=== PATIENT | male | born 1950 | race Caucasian/White ===

== ENCOUNTER 2018-09-29 11:46 | Inpatient (IN) | payer OTHER, MEDICAID ==
[~2018-09-29] VITALS: Ht 157.5 cm; Wt 50.3 kg
[~2018-09-29 11:46] MED LIST: 0.45% NACL 1,000 ML BAG IV ONE; MIDAZOLAM HCL 5 MG/5 ML VIAL IVP ONE; NS IRRIG SOLN 1000 ML IR ONE; ONDANSETRON HCL 4 MG/2 ML VIAL IVP ONE; PROPOFOL 200MG/ 20ML VIAL (DIPRIVAN) IV ONE; SEVOFLURANE 15 MIN GAS INH ONE
[2018-09-29] MEDS ORDERED: BISA-79 PO (15:44)
[2018-09-29] MEDS ORDERED: BISA10SU61 RC (15:44)
[2018-09-29] MEDS ORDERED: MULT-1089 PO (15:44)
[2018-09-29] MEDS ORDERED: CARV6.2554 PO (15:44)
[2018-09-29] MEDS ORDERED: DIVA250T PO (15:44)
[2018-09-29] MEDS ORDERED: SIMV40TA2 PO (15:44)
[2018-09-29] MEDS ORDERED: MOM PO (15:44)
[2018-09-29] MEDS ORDERED: ASPI-1155 PO (15:44)
[2018-09-29] MEDS ORDERED: DONE10TA44 PO (15:44)
[2018-09-29] MEDS ORDERED: SSNOVOLOG SUBCUT (15:44)
[2018-09-29] MEDS ORDERED: ACET-2165 PO (15:44)
[2018-09-29] MEDS ORDERED: INSU100V11 SQ (15:44)
[2018-09-29] MEDS ORDERED: LINA5TAB2 PO (15:44)
[2018-09-29] MEDS ORDERED: FENO160 PO (15:44)
[2018-09-29] MEDS ORDERED: ASCO500T20 PO (15:44)
[2018-09-29] MEDS ORDERED: FLEETMO RC (15:44)
[2018-09-29] MEDS ORDERED: MELA3TAB PO (15:44)
[2018-09-29] MEDS ORDERED: CLOP300T2 PO (15:44)
[2018-09-29] MEDS ORDERED: HYDR-4272 PO (15:44)
[2018-09-29 15:56] VITALS: BP_SYST 114
[2018-09-29 16:00] VITALS: BP_SYST 114
[2018-09-29 18:03] LABS: BASOPHILS # (AUTO) 0.1 K/uL (0.0-0.2); BASOPHILS % (AUTO) 0.6 % (0.0-2.0); EOSINOPHILS # (AUTO) 0.1 K/uL (0.0-0.4); EOSINOPHILS % (AUTO) 1.2 % (0.0-4.0); HEMATOCRIT 40.5 % (36-54); HEMOGLOBIN 13.5 g/dL (14.0-18.0); LYMPHOCYTES # (AUTO) 1.4 K/uL (1.0-5.5); LYMPHOCYTES % (AUTO) 16.1 % (20.5-51.5); MEAN CORPUSCULAR HEMOGLOBIN 33 pg (27-31); MEAN CORPUSCULAR HGB CONC 33 % (32-36); MEAN CORPUSCULAR VOLUME 98 fL (79.0-98.0); MONOCYTES # (AUTO) 0.8 K/uL (0.0-1.0); MONOCYTES % (AUTO) 8.5 % (1.7-9.3); NEUTROPHILS # (AUTO) 6.6 K/uL (1.8-7.7); NEUTROPHILS % (AUTO) 73.6 % (40.0-70.0); PLATELET COUNT (AUTO) 250 K/uL (130-430); RED BLOOD CELL COUNT(AUTO) 4.14 MIL/uL (4.2-6.2); RED CELL DISTRIBUTION WIDTH 14.7 % (9.0-15.0)
[2018-09-29] MEDS: INSULIN REGULAR, HUMAN 100 UNITS/ML, 10 ML VIAL (novoLIN R) SUBCUT PRN ×2 (18:04→20:57)
[2018-09-29 18:18] LABS: ALBUMIN 2.8 g/dL (3.4-4.8); CALCIUM 8.7 mg/dL (8.4-11.0); CREATININE 2.02 mg/dL (0.55-1.30); POTASSIUM 4.4 mmol/L (3.5-5.1); TOTAL BILIRUBIN 0.4 mg/dL (0.0-1.0)
[2018-09-29 20:00] VITALS: BP_SYST 115
[2018-09-29] MEDS: NORMAL SALINE 5 ML DISP.SYRIN IVF SCH (20:56)
[2018-09-29] MEDS ORDERED: BISACODYL 10 MG/SUPPOSITORY RC PRN (21:45)
[2018-09-29] MEDS ORDERED: MILK OF MAGNESIA 30 ML UDC PO PRN (21:45)
[2018-09-29] MEDS ORDERED: MINERAL OIL 133 ML ENEMA RC PRN (21:45)
[2018-09-29] MEDS ORDERED: MELATONIN 3 MG TABLET PO SCH (21:45)
[2018-09-29] MEDS ORDERED: ACETAMINOPHEN 325 MG TABLET PO PRN (21:45)
[2018-09-29] MEDS ORDERED: HYDROcodone/ACETAMIN 5-325 MG TAB (NORCO/ VICODIN) PO PRN (22:00)
[2018-09-29] MEDS: NICOTINE 21 MG/24 HR PATCH.TD24 TD SCH (22:22)
[2018-09-29] MEDS ORDERED: AMPICILLIN SODIUM/SULBACTAM NA 1.5 GM VIAL ONE (22:47)
[2018-09-29] MEDS: AMPICILLIN SODIUM/SULBACTAM NA 1.5 GM in NS 50 ML IV SCH (23:53)
[2018-09-30 00:58] VITALS: BP_SYST 100
[2018-09-30] MEDS: AMPICILLIN SODIUM/SULBACTAM NA 1.5 GM in NS 50 ML IV SCH ×3 (05:47→20:37)
[2018-09-30] MEDS: NORMAL SALINE 5 ML DISP.SYRIN IVF SCH ×3 (05:47→20:37)
[2018-09-30] MEDS ORDERED: DIVALPROEX SODIUM 250 MG TAB.SR.24H (DEPAKOTE ER) PO SCH (09:00)
[2018-09-30 09:18] VITALS: BP_SYST 133
[2018-09-30] MEDS: MULTIVITAMINS TAB 1 TABLET PO SCH (09:20)
[2018-09-30] MEDS: ASPIRIN 81 MG TAB.CHEW PO SCH (09:20)
[2018-09-30] MEDS: NICOTINE 21 MG/24 HR PATCH.TD24 TD SCH (09:20)
[2018-09-30] MEDS: FENOFIBRATE 160 MG TABLET PO SCH (09:21)
[2018-09-30] MEDS: ASCORBIC ACID 500 MG TABLET PO SCH ×2 (09:21→20:24)
[2018-09-30] MEDS: CLOPIDOGREL BISULFATE 75 MG TABLET PO SCH (09:21)
[2018-09-30] MEDS: LACTOBACILLUS RHAMNOSUS GG 1 CAP CAPSULE PO SCH ×2 (09:21→20:23)
[2018-09-30] MEDS: CARVEDILOL 6.25 MG TABLET (COREG) PO SCH ×2 (09:21→20:23)
[2018-09-30] MEDS ORDERED: *CUBICIN 6 MG/KG Q48H/PHARMACY XX PRN (11:15)
[2018-09-30] MEDS: INSULIN REGULAR, HUMAN 100 UNITS/ML, 10 ML VIAL (novoLIN R) SUBCUT PRN ×3 (11:56→20:32)
[2018-09-30 12:02] VITALS: BP_SYST 132
[2018-09-30] MEDS: FLUCONAZOLE 100 mg/ NS 50 ML IV SCH (12:12)
[2018-09-30] MEDS ORDERED: DAPTOmycin 400 MG in NS 50 ML IV SCH (13:00)
[2018-09-30] MEDS: 0.45% NACL 1,000 ML IV SCH (14:42)
[2018-09-30 16:02] VITALS: BP_SYST 139
[2018-09-30 19:00] VITALS: BP_SYST 139
[2018-09-30 20:00] VITALS: BP_SYST 139
[2018-09-30] MEDS: DONEPEZIL HCL 5 MG TABLET (ARICEPT) PO SCH (20:22)
[2018-09-30] MEDS: DIVALPROEX SODIUM 125 MG CAP.(DEPAKOTE SPRINKLE) PO SCH (20:23)
[2018-09-30] MEDS: SIMVASTATIN 40 MG TABLET PO SCH (20:24)
[2018-09-30] MEDS: TEMAZEPAM 15 MG CAPSULE PO SCH (20:24)
[2018-10-01 01:10] VITALS: BP_SYST 114
[2018-10-01] MEDS: 0.45% NACL 1,000 ML IV SCH ×2 (03:35→13:18)
[2018-10-01] MEDS: AMPICILLIN SODIUM/SULBACTAM NA 1.5 GM in NS 50 ML IV SCH ×3 (06:10→20:18)
[2018-10-01] MEDS: NORMAL SALINE 5 ML DISP.SYRIN IVF SCH ×3 (06:10→20:19)
[2018-10-01] MEDS: INSULIN REGULAR, HUMAN 100 UNITS/ML, 10 ML VIAL (novoLIN R) SUBCUT PRN ×4 (06:16→20:11)
[2018-10-01 06:45] LABS: BASOPHILS % (AUTO) 0.5 % (0.0-2.0); EOSINOPHILS # (AUTO) 0.1 K/uL (0.0-0.4); HEMATOCRIT 38.3 % (36-54); LYMPHOCYTES # (AUTO) 1.3 K/uL (1.0-5.5); LYMPHOCYTES % (AUTO) 14.4 % (20.5-51.5); MEAN CORPUSCULAR HEMOGLOBIN 33 pg (27-31); MEAN CORPUSCULAR HGB CONC 34 % (32-36); MEAN CORPUSCULAR VOLUME 96 fL (79.0-98.0); MONOCYTES # (AUTO) 0.8 K/uL (0.0-1.0); MONOCYTES % (AUTO) 9.3 % (1.7-9.3); NEUTROPHILS # (AUTO) 6.7 K/uL (1.8-7.7); NEUTROPHILS % (AUTO) 74.8 % (40.0-70.0); PLATELET COUNT (AUTO) 227 K/uL (130-430); RED BLOOD CELL COUNT(AUTO) 3.99 MIL/uL (4.2-6.2); RED CELL DISTRIBUTION WIDTH 14.2 % (9.0-15.0); WHITE BLOOD COUNT (AUTO) 8.9 K/uL (4.8-10.8)
[2018-10-01 07:01] LABS: CALCIUM 8.2 mg/dL (8.4-11.0); CREATININE 1.94 mg/dL (0.55-1.30); POTASSIUM 4.6 mmol/L (3.5-5.1)
[2018-10-01 08:00] VITALS: BP_SYST 157
[2018-10-01] MEDS: MULTIVITAMINS TAB 1 TABLET PO SCH (08:54)
[2018-10-01] MEDS: ASPIRIN 81 MG TAB.CHEW PO SCH (08:54)
[2018-10-01] MEDS: ASCORBIC ACID 500 MG TABLET PO SCH ×2 (08:54→20:05)
[2018-10-01] MEDS: LACTOBACILLUS RHAMNOSUS GG 1 CAP CAPSULE PO SCH ×2 (08:54→20:05)
[2018-10-01] MEDS: CLOPIDOGREL BISULFATE 75 MG TABLET PO SCH (08:54)
[2018-10-01] MEDS: DIVALPROEX SODIUM 125 MG CAP.(DEPAKOTE SPRINKLE) PO SCH ×2 (08:55→20:05)
[2018-10-01] MEDS: FENOFIBRATE 160 MG TABLET PO SCH (08:55)
[2018-10-01] MEDS: NICOTINE 21 MG/24 HR PATCH.TD24 TD SCH (08:56)
[2018-10-01] MEDS: CARVEDILOL 6.25 MG TABLET (COREG) PO SCH ×2 (08:56→20:05)
[2018-10-01] MEDS: FENOFIBRATE NANOCRYSTALLIZED 48 MG TABLET (TRICOR) PO SCH (09:51)
[2018-10-01] MEDS: FLUCONAZOLE 100 mg/ NS 50 ML IV SCH (09:52)
[2018-10-01 12:38] VITALS: BP_SYST 158
[2018-10-01 16:38] VITALS: BP_SYST 113
[2018-10-01 20:00] VITALS: BP_SYST 108
[2018-10-01] MEDS: SIMVASTATIN 40 MG TABLET PO SCH (20:04)
[2018-10-01] MEDS: DONEPEZIL HCL 5 MG TABLET (ARICEPT) PO SCH (20:05)
[2018-10-01] MEDS: TEMAZEPAM 15 MG CAPSULE PO SCH (20:05)
[2018-10-02 01:12] VITALS: BP_SYST 112
[2018-10-02] MEDS: 0.45% NACL 1,000 ML IV SCH ×2 (05:31→19:53)
[2018-10-02] MEDS: NORMAL SALINE 5 ML DISP.SYRIN IVF SCH ×3 (05:32→22:22)
[2018-10-02] MEDS: AMPICILLIN SODIUM/SULBACTAM NA 1.5 GM in NS 50 ML IV SCH (05:33)
[2018-10-02] MEDS: INSULIN REGULAR, HUMAN 100 UNITS/ML, 10 ML VIAL (novoLIN R) SUBCUT PRN ×4 (06:10→22:31)
[2018-10-02 08:02] VITALS: BP_SYST 116
[2018-10-02] MEDS: NICOTINE 21 MG/24 HR PATCH.TD24 TD SCH ×2 (09:00→09:16)
[2018-10-02] MEDS: LACTOBACILLUS RHAMNOSUS GG 1 CAP CAPSULE PO SCH ×2 (09:16→22:21)
[2018-10-02] MEDS: CLOPIDOGREL BISULFATE 75 MG TABLET PO SCH (09:17)
[2018-10-02] MEDS: DIVALPROEX SODIUM 125 MG CAP.(DEPAKOTE SPRINKLE) PO SCH ×2 (09:17→22:20)
[2018-10-02] MEDS: FENOFIBRATE NANOCRYSTALLIZED 48 MG TABLET (TRICOR) PO SCH (09:17)
[2018-10-02] MEDS: ASPIRIN 81 MG TAB.CHEW PO SCH (09:17)
[2018-10-02] MEDS: ASCORBIC ACID 500 MG TABLET PO SCH ×2 (09:17→22:21)
[2018-10-02] MEDS: CARVEDILOL 6.25 MG TABLET (COREG) PO SCH ×2 (09:17→22:21)
[2018-10-02] MEDS: FLUCONAZOLE 100 mg/ NS 50 ML IV SCH (09:18)
[2018-10-02] MEDS: MULTIVITAMINS TAB 1 TABLET PO SCH (09:18)
[2018-10-02 12:25] VITALS: BP_SYST 112
[2018-10-02] MEDS: CEFEPIME 1 GM in D5W 50 ML IV SCH (13:56)
[2018-10-02 16:38] VITALS: BP_SYST 123
[2018-10-02 18:10] LABS: CALCIUM 8.2 mg/dL (8.4-11.0); CREATININE 2.2 mg/dL (0.55-1.30)
[2018-10-02 18:15] LABS: POTASSIUM 5.3 mmol/L (3.5-5.1)
[2018-10-02 18:16] LABS: ALBUMIN 2.4 g/dL (3.4-4.8); TOTAL BILIRUBIN 0.3 mg/dL (0.0-1.0)
[2018-10-02 19:20] VITALS: BP_SYST 112
[2018-10-02] MEDS: VANCOMYCIN HCL 1,000 MG in NS 250 ML IV SCH (19:52)
[2018-10-02] MEDS: TEMAZEPAM 15 MG CAPSULE PO SCH (22:20)
[2018-10-02] MEDS: DONEPEZIL HCL 5 MG TABLET (ARICEPT) PO SCH (22:21)
[2018-10-02] MEDS: SIMVASTATIN 40 MG TABLET PO SCH (22:21)
[2018-10-03] MEDS: NORMAL SALINE 5 ML DISP.SYRIN IVF SCH ×3 (05:11→21:37)
[2018-10-03 05:46] VITALS: BP_SYST 118
[2018-10-03] MEDS: INSULIN REGULAR, HUMAN 100 UNITS/ML, 10 ML VIAL (novoLIN R) SUBCUT PRN ×4 (06:05→21:35)
[2018-10-03] MEDS: 0.45% NACL 1,000 ML IV SCH ×2 (06:06→22:21)
[2018-10-03 08:05] VITALS: BP_SYST 129
[2018-10-03] MEDS: NICOTINE 21 MG/24 HR PATCH.TD24 TD SCH (09:00)
[2018-10-03] MEDS: ASPIRIN 81 MG TAB.CHEW PO SCH (09:07)
[2018-10-03] MEDS: ASCORBIC ACID 500 MG TABLET PO SCH ×2 (09:08→21:20)
[2018-10-03] MEDS: FENOFIBRATE NANOCRYSTALLIZED 48 MG TABLET (TRICOR) PO SCH (09:08)
[2018-10-03] MEDS: DIVALPROEX SODIUM 125 MG CAP.(DEPAKOTE SPRINKLE) PO SCH ×2 (09:08→21:17)
[2018-10-03] MEDS: CLOPIDOGREL BISULFATE 75 MG TABLET PO SCH (09:08)
[2018-10-03] MEDS: MULTIVITAMINS TAB 1 TABLET PO SCH (09:08)
[2018-10-03] MEDS: LACTOBACILLUS RHAMNOSUS GG 1 CAP CAPSULE PO SCH ×2 (09:08→21:17)
[2018-10-03] MEDS: CARVEDILOL 6.25 MG TABLET (COREG) PO SCH ×2 (09:09→21:20)
[2018-10-03] MEDS: FLUCONAZOLE 100 mg/ NS 50 ML IV SCH (09:15)
[2018-10-03 13:19] LABS: BASOPHILS % (AUTO) 0.5 % (0.0-2.0); EOSINOPHILS # (AUTO) 0.1 K/uL (0.0-0.4); HEMATOCRIT 37.7 % (36-54); HEMOGLOBIN 12.6 g/dL (14.0-18.0); LYMPHOCYTES # (AUTO) 0.9 K/uL (1.0-5.5); LYMPHOCYTES % (AUTO) 10.3 % (20.5-51.5); MEAN CORPUSCULAR HEMOGLOBIN 33 pg (27-31); MEAN CORPUSCULAR HGB CONC 33 % (32-36); MEAN CORPUSCULAR VOLUME 97 fL (79.0-98.0); MONOCYTES # (AUTO) 0.4 K/uL (0.0-1.0); MONOCYTES % (AUTO) 4.2 % (1.7-9.3); NEUTROPHILS # (AUTO) 7.3 K/uL (1.8-7.7); PLATELET COUNT (AUTO) 236 K/uL (130-430); RED BLOOD CELL COUNT(AUTO) 3.88 MIL/uL (4.2-6.2); RED CELL DISTRIBUTION WIDTH 14.3 % (9.0-15.0); WHITE BLOOD COUNT (AUTO) 8.7 K/uL (4.8-10.8)
[2018-10-03 13:24] VITALS: BP_SYST 112
[2018-10-03 13:28] LABS: CALCIUM 8.5 mg/dL (8.4-11.0); CREATININE 1.87 mg/dL (0.55-1.30); POTASSIUM 4.3 mmol/L (3.5-5.1)
[2018-10-03] MEDS: CEFEPIME 1 GM in D5W 50 ML IV SCH (13:28)
[2018-10-03 13:30] LABS: PROTHROMBIN TIME 10.5 SECS (9.5-12.5)
[2018-10-03 16:32] VITALS: BP_SYST 143
[2018-10-03 17:04] LABS: BILIRUBIN,URINE NEGATIVE (NEGATIVE); BLOOD, URINE NEGATIVE (NEGATIVE); CLARITY/URINE CLEAR (CLEAR); COLOR,URINE YELLOW (YELLOW); GLUCOSE,URINE NEGATIVE (NEGATIVE); KETONES,URINE NEGATIVE (NEGATIVE); LEUKOCYTE ESTERASE ,URINE NEGATIVE (NEGATIVE); NITRITE, URINE NEGATIVE (NEGATIVE); PROTEIN URINE 1+ (NEGATIVE); UROBILINOGEN,URINE 0.2 (0.2-1.0)
[2018-10-03 17:11] LABS: BACTERIA,URINE RARE /HPF (None Seen); MUCUS,URINE None Seen /LPF (None Seen); RBC,URINE NONE SEEN /HPF (0-3); WBC,URINE 0-3 /HPF (0-3)
[2018-10-03 19:18] VITALS: BP_SYST 124
[2018-10-03] MEDS: DONEPEZIL HCL 5 MG TABLET (ARICEPT) PO SCH (21:17)
[2018-10-03] MEDS: SIMVASTATIN 40 MG TABLET PO SCH (21:20)
[2018-10-03] MEDS: TEMAZEPAM 15 MG CAPSULE PO SCH (21:20)
[2018-10-04] MEDS: NORMAL SALINE 5 ML DISP.SYRIN IVF SCH ×3 (05:51→21:11)
[2018-10-04 08:00] VITALS: BP_SYST 161
[2018-10-04] MEDS: FLUCONAZOLE 100 mg/ NS 50 ML IV SCH (08:43)
[2018-10-04] MEDS: CARVEDILOL 6.25 MG TABLET (COREG) PO SCH ×2 (08:46→20:44)
[2018-10-04] MEDS ORDERED: 0.45% NACL 1,000 ML IV SCH (09:43)
[2018-10-04] MEDS ORDERED: MORPHINE 4 MG/ML INJ. SYRINGE IVP PRN ×3 (09:45)
[2018-10-04] MEDS ORDERED: METOCLOPRAMIDE HCL 10 MG/2 ML VIAL IVP PRN (09:45)
[2018-10-04 11:15] VITALS: BP_SYST 153
[2018-10-04] MEDS: CEFEPIME 1 GM in D5W 50 ML IV SCH (12:21)
[2018-10-04] MEDS: LACTOBACILLUS RHAMNOSUS GG 1 CAP CAPSULE PO SCH ×2 (14:53→20:33)
[2018-10-04] MEDS: ASPIRIN 81 MG TAB.CHEW PO SCH (14:53)
[2018-10-04] MEDS: NICOTINE 21 MG/24 HR PATCH.TD24 TD SCH (14:53)
[2018-10-04] MEDS: MULTIVITAMINS TAB 1 TABLET PO SCH (14:54)
[2018-10-04] MEDS: FENOFIBRATE NANOCRYSTALLIZED 48 MG TABLET (TRICOR) PO SCH (14:54)
[2018-10-04] MEDS: ASCORBIC ACID 500 MG TABLET PO SCH ×2 (14:54→20:34)
[2018-10-04] MEDS: DIVALPROEX SODIUM 125 MG CAP.(DEPAKOTE SPRINKLE) PO SCH ×2 (14:54→20:35)
[2018-10-04] MEDS ORDERED: MELATONIN 3 MG TABLET PO SCH (16:12)
[2018-10-04] MEDS: CLOPIDOGREL BISULFATE 75 MG TABLET PO SCH (16:13)
[2018-10-04 17:37] VITALS: BP_SYST 126
[2018-10-04] MEDS: VANCOMYCIN HCL 1,000 MG in NS 250 ML IV SCH (18:04)
[2018-10-04] MEDS: INSULIN REGULAR, HUMAN 100 UNITS/ML, 10 ML VIAL (novoLIN R) SUBCUT PRN ×2 (18:18→21:15)
[2018-10-04 20:30] VITALS: BP_SYST 108
[2018-10-04] MEDS: TEMAZEPAM 15 MG CAPSULE PO SCH (20:33)
[2018-10-04] MEDS: DONEPEZIL HCL 5 MG TABLET (ARICEPT) PO SCH (20:34)
[2018-10-04] MEDS: SIMVASTATIN 40 MG TABLET PO SCH (20:34)
[2018-10-05 01:04] VITALS: BP_SYST 132
[2018-10-05] MEDS: NORMAL SALINE 5 ML DISP.SYRIN IVF SCH ×3 (06:18→21:08)
[2018-10-05] MEDS: ASPIRIN 81 MG TAB.CHEW PO SCH (08:26)
[2018-10-05] MEDS: NICOTINE 21 MG/24 HR PATCH.TD24 TD SCH (08:26)
[2018-10-05] MEDS: CARVEDILOL 6.25 MG TABLET (COREG) PO SCH ×2 (08:27→20:48)
[2018-10-05] MEDS: CLOPIDOGREL BISULFATE 75 MG TABLET PO SCH (08:27)
[2018-10-05] MEDS: ASCORBIC ACID 500 MG TABLET PO SCH ×2 (08:28→20:47)
[2018-10-05] MEDS: LACTOBACILLUS RHAMNOSUS GG 1 CAP CAPSULE PO SCH ×2 (08:28→20:48)
[2018-10-05] MEDS: DIVALPROEX SODIUM 125 MG CAP.(DEPAKOTE SPRINKLE) PO SCH ×2 (08:28→20:48)
[2018-10-05] MEDS: FENOFIBRATE NANOCRYSTALLIZED 48 MG TABLET (TRICOR) PO SCH (08:28)
[2018-10-05] MEDS: MULTIVITAMINS TAB 1 TABLET PO SCH (08:28)
[2018-10-05] MEDS: FLUCONAZOLE 100 mg/ NS 50 ML IV SCH (08:30)
[2018-10-05 08:51] VITALS: BP_SYST 106
[2018-10-05] MEDS: CEFEPIME 1 GM in D5W 50 ML IV SCH (11:51)
[2018-10-05] MEDS: INSULIN REGULAR, HUMAN 100 UNITS/ML, 10 ML VIAL (novoLIN R) SUBCUT PRN ×3 (11:51→20:52)
[2018-10-05 12:00] VITALS: BP_SYST 130
[2018-10-05 16:10] VITALS: BP_SYST 127
[2018-10-05 19:50] VITALS: BP_SYST 123
[2018-10-05] MEDS: SIMVASTATIN 40 MG TABLET PO SCH (20:47)
[2018-10-05] MEDS: TEMAZEPAM 15 MG CAPSULE PO SCH (20:47)
[2018-10-05] MEDS: DONEPEZIL HCL 5 MG TABLET (ARICEPT) PO SCH (20:48)
[2018-10-06 00:34] VITALS: BP_SYST 130
[2018-10-06 06:29] LABS: CREATININE 1.98 mg/dL (0.55-1.30); POTASSIUM 4.4 mmol/L (3.5-5.1)
[2018-10-06] MEDS: NORMAL SALINE 5 ML DISP.SYRIN IVF SCH ×3 (07:11→21:22)
[2018-10-06 08:00] VITALS: BP_SYST 118
[2018-10-06] MEDS: FLUCONAZOLE 100 mg/ NS 50 ML IV SCH (08:58)
[2018-10-06] MEDS: VANCOMYCIN HCL 500 MG in NS 100 ML IV SCH (08:58)
[2018-10-06] MEDS: LACTOBACILLUS RHAMNOSUS GG 1 CAP CAPSULE PO SCH ×2 (08:59→21:12)
[2018-10-06] MEDS: DIVALPROEX SODIUM 125 MG CAP.(DEPAKOTE SPRINKLE) PO SCH ×2 (08:59→21:13)
[2018-10-06] MEDS: CLOPIDOGREL BISULFATE 75 MG TABLET PO SCH (08:59)
[2018-10-06] MEDS: MULTIVITAMINS TAB 1 TABLET PO SCH (08:59)
[2018-10-06] MEDS: ASCORBIC ACID 500 MG TABLET PO SCH ×2 (08:59→21:12)
[2018-10-06] MEDS: ASPIRIN 81 MG TAB.CHEW PO SCH (08:59)
[2018-10-06] MEDS: FENOFIBRATE NANOCRYSTALLIZED 48 MG TABLET (TRICOR) PO SCH (08:59)
[2018-10-06] MEDS: NICOTINE 21 MG/24 HR PATCH.TD24 TD SCH (09:00)
[2018-10-06] MEDS: CARVEDILOL 6.25 MG TABLET (COREG) PO SCH ×2 (09:00→21:13)
[2018-10-06 11:26] VITALS: BP_SYST 118
[2018-10-06] MEDS: INSULIN REGULAR, HUMAN 100 UNITS/ML, 10 ML VIAL (novoLIN R) SUBCUT PRN ×3 (11:52→21:20)
[2018-10-06] MEDS: CEFEPIME 1 GM in D5W 50 ML IV SCH (13:03)
[2018-10-06 15:45] VITALS: BP_SYST 126
[2018-10-06 21:06] VITALS: BP_SYST 115
[2018-10-06] MEDS: DONEPEZIL HCL 5 MG TABLET (ARICEPT) PO SCH (21:12)
[2018-10-06] MEDS: SIMVASTATIN 40 MG TABLET PO SCH (21:12)
[2018-10-06] MEDS: TEMAZEPAM 15 MG CAPSULE PO SCH (21:13)
[2018-10-07 00:24] VITALS: BP_SYST 122
[2018-10-07] MEDS: NORMAL SALINE 5 ML DISP.SYRIN IVF SCH (05:23)
[2018-10-07] MEDS: INSULIN REGULAR, HUMAN 100 UNITS/ML, 10 ML VIAL (novoLIN R) SUBCUT PRN ×2 (06:28→11:29)
[2018-10-07 06:38] LABS: BASOPHILS # (AUTO) 0.1 K/uL (0.0-0.2); BASOPHILS % (AUTO) 0.7 % (0.0-2.0); EOSINOPHILS # (AUTO) 0.2 K/uL (0.0-0.4); EOSINOPHILS % (AUTO) 2.1 % (0.0-4.0); HEMATOCRIT 36.2 % (36-54); HEMOGLOBIN 12.3 g/dL (14.0-18.0); LYMPHOCYTES # (AUTO) 1.5 K/uL (1.0-5.5); MEAN CORPUSCULAR HEMOGLOBIN 33 pg (27-31); MEAN CORPUSCULAR HGB CONC 34 % (32-36); MEAN CORPUSCULAR VOLUME 97 fL (79.0-98.0); MONOCYTES # (AUTO) 0.9 K/uL (0.0-1.0); MONOCYTES % (AUTO) 9.9 % (1.7-9.3); NEUTROPHILS # (AUTO) 6.7 K/uL (1.8-7.7); NEUTROPHILS % (AUTO) 71.3 % (40.0-70.0); PLATELET COUNT (AUTO) 263 K/uL (130-430); RED BLOOD CELL COUNT(AUTO) 3.73 MIL/uL (4.2-6.2); RED CELL DISTRIBUTION WIDTH 14.4 % (9.0-15.0); WHITE BLOOD COUNT (AUTO) 9.4 K/uL (4.8-10.8)
[2018-10-07 07:41] LABS: CALCIUM 9.1 mg/dL (8.4-11.0); CREATININE 1.96 mg/dL (0.55-1.30); POTASSIUM 4.9 mmol/L (3.5-5.1)
[2018-10-07 08:05] VITALS: BP_SYST 128
[2018-10-07] MEDS: CLOPIDOGREL BISULFATE 75 MG TABLET PO SCH (09:37)
[2018-10-07] MEDS: FENOFIBRATE NANOCRYSTALLIZED 48 MG TABLET (TRICOR) PO SCH (09:37)
[2018-10-07] MEDS: ASPIRIN 81 MG TAB.CHEW PO SCH (09:37)
[2018-10-07] MEDS: MULTIVITAMINS TAB 1 TABLET PO SCH (09:37)
[2018-10-07] MEDS: DIVALPROEX SODIUM 125 MG CAP.(DEPAKOTE SPRINKLE) PO SCH (09:37)
[2018-10-07] MEDS: ASCORBIC ACID 500 MG TABLET PO SCH (09:37)
[2018-10-07] MEDS: LACTOBACILLUS RHAMNOSUS GG 1 CAP CAPSULE PO SCH (09:37)
[2018-10-07] MEDS: CARVEDILOL 6.25 MG TABLET (COREG) PO SCH (09:38)
[2018-10-07] MEDS: VANCOMYCIN HCL 500 MG in NS 100 ML IV SCH (09:38)
[2018-10-07] MEDS: NICOTINE 21 MG/24 HR PATCH.TD24 TD SCH (09:39)
[2018-10-07 10:50] VITALS: BP_SYST 128
[2018-10-07] MEDS ORDERED: DOXY100T2 PO (11:04)
[2018-10-07] MEDS: CEFEPIME 1 GM in D5W 50 ML IV SCH (11:31)
[2018-10-07 12:20] VITALS: BP_SYST 120
[2018-10-07 12:35] VITALS: BP_SYST 128
== END 2018-10-07 14:05 | DRG 616 ==
LOC: SMU 15:32
PROVIDERS: ADMIT Family Medicine; ATTEND Family Medicine
PROC: 0Y6T0Z0 Detachment at Right 3rd Toe, Complete, Open Approach (ICD-10-PCS; principal; 2018-10-04 09:00)
DX: E11.69 Type 2 diabetes mellitus with other specified complication (principal); E43 Unspecified severe protein-calorie malnutrition; E11.52 Type 2 diabetes mellitus with diabetic peripheral angiopathy with gangrene; M86.8X7 Other osteomyelitis, ankle and foot; L03.115 Cellulitis of right lower limb; J44.9 Chronic obstructive pulmonary disease, unspecified; I12.9 Hypertensive chronic kidney disease with stage 1 through stage 4 chronic kidney disease, or unspecified chronic kidney disease; F43.10 Post-traumatic stress disorder, unspecified; L97.519 Non-pressure chronic ulcer of other part of right foot with unspecified severity; N18.3 Chronic kidney disease, stage 3 (moderate); B95.62 Methicillin resistant Staphylococcus aureus infection as the cause of diseases classified elsewhere; E11.22 Type 2 diabetes mellitus with diabetic chronic kidney disease; E11.621 Type 2 diabetes mellitus with foot ulcer; F17.210 Nicotine dependence, cigarettes, uncomplicated; Z16.24 Resistance to multiple antibiotics; Z89.421 Acquired absence of other right toe(s)
CPT/HCPCS: 36415; 71045; 80048; 80053; 80202-TC; 81000-TC; 82962; 85025; 85610-TC; 87070-TC; 87081; 87186-TC; 88305; 88311; 93005; 93923; 94010; J0295; J0692; J0878; J1450; J1815; J2250; J2405; J2704; J3370; J7042; J7050; J7060

== ENCOUNTER 2018-12-18 18:08 | Inpatient (IN) | payer OTHER, MEDICAID ==
[~2018-12-18] VITALS: Ht 157.5 cm; Wt 65.8 kg
[~2018-12-18 18:08] MED LIST changes: -0.45% NACL 1,000 ML BAG IV ONE; +ACET-2165 PO; +ASCO500T20 PO; +ASPI-1155 PO; +BISA10SU61 RC; +CARV6.2554 PO; +CLOP300T2 PO; +DIVA250T PO; +DONE10TA44 PO; +DOXY100T2 PO; +FENO160 PO; +FLEETMO RC; +HYDR-4272 PO; +INSU100V11 SQ; +LINA5TAB2 PO; +MELA3TAB PO; -MIDAZOLAM HCL 5 MG/5 ML VIAL IVP ONE; +MOM PO; +MULT-1089 PO; -NS IRRIG SOLN 1000 ML IR ONE; -ONDANSETRON HCL 4 MG/2 ML VIAL IVP ONE; -PROPOFOL 200MG/ 20ML VIAL (DIPRIVAN) IV ONE; -SEVOFLURANE 15 MIN GAS INH ONE; +SIMV40TA2 PO; +SSNOVOLOG SUBCUT
[2018-12-18 18:14] VITALS: BP_SYST 98
[2018-12-18] MEDS ORDERED: IPRATROPIUM/ALBUTEROL SULFATE 3 ML AMPUL.NEB (DUONEB) INH ONE (18:45)
[2018-12-18] MEDS ORDERED: methylPREDNISolone SOD SUCC/PF 62.5 MG/ML VIAL IVP ONE (18:45)
[2018-12-18 19:15] LABS: HEMATOCRIT 32.7 % (36-54); HEMOGLOBIN 10.9 g/dL (14.0-18.0); MEAN CORPUSCULAR HEMOGLOBIN 33 pg (27-31); MEAN CORPUSCULAR HGB CONC 33 % (32-36); MEAN CORPUSCULAR VOLUME 98 fL (79.0-98.0); PLATELET COUNT (AUTO) 251 K/uL (130-430); RED BLOOD CELL COUNT(AUTO) 3.33 MIL/uL (4.2-6.2); RED CELL DISTRIBUTION WIDTH 15.8 % (9.0-15.0); WHITE BLOOD COUNT (AUTO) 11.9 K/uL (4.8-10.8)
[2018-12-18] MEDS ORDERED: PIPERACILLIN/TAZO 3.375 GM in NS 50 ML IV ONE (19:30)
[2018-12-18 19:35] LABS: INR 1.1 (0.80-1.20)
[2018-12-18 19:41] LABS: BAND % (MANUAL) 5 % (0-6); BASOPHILS % (MANUAL) 0 % (0-2); CALCIUM 8.8 mg/dL (8.4-11.0); CREATININE 3.21 mg/dL (0.55-1.30); EOSINOPHILS % (MANUAL) 0 % (0-7); LYMPHOCYTES % (MANUAL) 11 % (20-46); MONOCYTES % (MANUAL) 8 % (0-11); POTASSIUM 4.4 mmol/L (3.5-5.1)
[2018-12-18 19:45] LABS: ALBUMIN 2.4 g/dL (3.4-4.8); TOTAL BILIRUBIN 0.4 mg/dL (0.0-1.0)
[2018-12-18] MEDS ORDERED: ASCO500T20 PO (19:51)
[2018-12-18] MEDS ORDERED: PIPERACILLIN/TAZOBACTAM 3.375 GM/VIAL (ZOSYN) IV ONE (19:52)
[2018-12-18] MEDS ORDERED: NA P133E41 RC (19:55)
[2018-12-18 20:14] LABS: BILIRUBIN,URINE NEGATIVE (NEGATIVE); BLOOD, URINE NEGATIVE (NEGATIVE); CLARITY/URINE CLEAR (CLEAR); COLOR,URINE YELLOW (YELLOW); GLUCOSE,URINE NEGATIVE (NEGATIVE); KETONES,URINE NEGATIVE (NEGATIVE); LEUKOCYTE ESTERASE ,URINE NEGATIVE (NEGATIVE); NITRITE, URINE NEGATIVE (NEGATIVE); PH,URINE 5.5 (5.0-8.0); PROTEIN URINE 2+ (NEGATIVE); UROBILINOGEN,URINE 0.2 (0.2-1.0)
[2018-12-18 20:30] LABS: BACTERIA,URINE RARE /HPF (None Seen); RBC,URINE 0-3 /HPF (0-3); WBC,URINE 0-3 /HPF (0-3)
[2018-12-18 20:31] LABS: URINE AMORPHOUS URATE 1+ /HPF (None Seen)
[2018-12-18] MEDS ORDERED: HEPARIN 25,000 UNITS/D5W 250ML 250 ML IV ONE (21:30)
[2018-12-18] MEDS ORDERED: HEPARIN SODIUM,PORCINE 5000 UNITS/ML VIAL IVP ONE (22:15)
[2018-12-18 23:07] VITALS: BP_SYST 99
[2018-12-18] MEDS ORDERED: HYDROcodone/ACETAMIN 5-325 MG TAB (NORCO/ VICODIN) PO PRN (23:15)
[2018-12-18] MEDS ORDERED: LevALBUTEROL HCL 1.25 MG/0.5 ML *CONC.* VIAL.NEB (XOPENEX CONC.) INH PRN (23:15)
[2018-12-18] MEDS ORDERED: NA PHOS,M-B/NA PHOS,DI-BA 118 ML (FLEET ENEMA) RC PRN (23:15)
[2018-12-18] MEDS ORDERED: MILK OF MAGNESIA 30 ML UDC PO PRN (23:15)
[2018-12-18] MEDS ORDERED: ACETAMINOPHEN 325 MG TABLET PO PRN (23:15)
[2018-12-18] MEDS ORDERED: NITROGLYCERIN 0.4 MG TAB.SUBL SL PRN (23:15)
[2018-12-18] MEDS ORDERED: BISACODYL 10 MG/SUPPOSITORY RC PRN (23:15)
[2018-12-18 23:24] VITALS: BP_SYST 98
[2018-12-18] MEDS ORDERED: ONDANSETRON HCL 4 MG/2 ML VIAL IVP PRN (23:30)
[2018-12-18] MEDS: 0.45% NACL 1,000 ML IV SCH (23:36)
[2018-12-19] VITALS (24 sets, daily range): BP systolic 86–114
[2018-12-19 04:18] LABS: BASOPHILS % (AUTO) 0.2 % (0.0-2.0); HEMATOCRIT 32.1 % (36-54); HEMOGLOBIN 10.9 g/dL (14.0-18.0); LYMPHOCYTES # (AUTO) 0.7 K/uL (1.0-5.5); LYMPHOCYTES % (AUTO) 6.6 % (20.5-51.5); MEAN CORPUSCULAR HEMOGLOBIN 33 pg (27-31); MEAN CORPUSCULAR HGB CONC 34 % (32-36); MEAN CORPUSCULAR VOLUME 98 fL (79.0-98.0); MONOCYTES # (AUTO) 0.2 K/uL (0.0-1.0); NEUTROPHILS # (AUTO) 9.3 K/uL (1.8-7.7); NEUTROPHILS % (AUTO) 91.2 % (40.0-70.0); PLATELET COUNT (AUTO) 225 K/uL (130-430); RED BLOOD CELL COUNT(AUTO) 3.26 MIL/uL (4.2-6.2); RED CELL DISTRIBUTION WIDTH 15.9 % (9.0-15.0); WHITE BLOOD COUNT (AUTO) 10.2 K/uL (4.8-10.8)
[2018-12-19 04:43] LABS: CALCIUM 8.6 mg/dL (8.4-11.0); CREATININE 3.14 mg/dL (0.55-1.30)
[2018-12-19] MEDS ORDERED: HEPARIN 25,000 UNITS/D5W 250ML 250 ML IV PRN (05:00)
[2018-12-19] MEDS ORDERED: *HEPARIN PER PHARMACY XX ONE (05:00)
[2018-12-19] MEDS ORDERED: HEPARIN SODIUM,PORCINE 3000 UNITS/0.6 ML BOLUS IVP PRN (05:30)
[2018-12-19] MEDS: INSULIN REGULAR, HUMAN 100 UNITS/ML, 10 ML VIAL (humuLIN R) SUBCUT PRN ×4 (06:23→21:06)
[2018-12-19] MEDS: LevALBUTEROL HCL 1.25 MG/0.5 ML *CONC.* VIAL.NEB (XOPENEX CONC.) INH SCH ×3 (07:23→23:00)
[2018-12-19] MEDS: ASPIRIN 81 MG TAB.CHEW PO SCH (08:08)
[2018-12-19] MEDS: DIVALPROEX SODIUM 125 MG CAP.(DEPAKOTE SPRINKLE) PO SCH ×2 (08:09→21:08)
[2018-12-19] MEDS: MULTIVITAMINS TAB 1 TABLET PO SCH (08:09)
[2018-12-19] MEDS: CLOPIDOGREL BISULFATE 75 MG TABLET PO SCH (08:09)
[2018-12-19] MEDS: FENOFIBRATE 160 MG TABLET PO SCH (08:09)
[2018-12-19] MEDS: ASCORBIC ACID 500 MG TABLET PO SCH ×2 (08:09→21:08)
[2018-12-19] MEDS: CARVEDILOL 6.25 MG TABLET (COREG) PO SCH ×2 (08:10→17:26)
[2018-12-19] MEDS: INSULIN GLARGINE 100 UNITS/ML 10 ML VIAL SQ SCH (08:12)
[2018-12-19] MEDS ORDERED: FUROSEMIDE 40 MG/4 ML VIAL IVP ONE (08:30)
[2018-12-19] MEDS ORDERED: INSULIN REGULAR, HUMAN 100 UNITS/ML, 10 ML VIAL SUBCUT ONE (18:30)
[2018-12-19] MEDS: DONEPEZIL HCL 5 MG TABLET (ARICEPT) PO SCH (21:08)
[2018-12-19] MEDS: MELATONIN 3 MG TABLET PO SCH (21:08)
[2018-12-19] MEDS: SIMVASTATIN 40 MG TABLET PO SCH (21:08)
[2018-12-19] MEDS: 0.45% NACL 1,000 ML IV SCH (22:49)
[2018-12-20] VITALS (20 sets, daily range): BP systolic 84–120
[2018-12-20 05:39] LABS: BASOPHILS # (AUTO) 0.1 K/uL (0.0-0.2); BASOPHILS % (AUTO) 0.4 % (0.0-2.0); EOSINOPHILS # (AUTO) 0.2 K/uL (0.0-0.4); EOSINOPHILS % (AUTO) 1.1 % (0.0-4.0); HEMATOCRIT 31.3 % (36-54); HEMOGLOBIN 10.6 g/dL (14.0-18.0); LYMPHOCYTES # (AUTO) 1.8 K/uL (1.0-5.5); LYMPHOCYTES % (AUTO) 10.6 % (20.5-51.5); MEAN CORPUSCULAR HEMOGLOBIN 33 pg (27-31); MEAN CORPUSCULAR HGB CONC 34 % (32-36); MEAN CORPUSCULAR VOLUME 98 fL (79.0-98.0); MONOCYTES # (AUTO) 0.9 K/uL (0.0-1.0); MONOCYTES % (AUTO) 5.7 % (1.7-9.3); NEUTROPHILS # (AUTO) 13.6 K/uL (1.8-7.7); NEUTROPHILS % (AUTO) 82.2 % (40.0-70.0); PLATELET COUNT (AUTO) 258 K/uL (130-430); RED BLOOD CELL COUNT(AUTO) 3.18 MIL/uL (4.2-6.2); RED CELL DISTRIBUTION WIDTH 15.4 % (9.0-15.0); WHITE BLOOD COUNT (AUTO) 16.6 K/uL (4.8-10.8)
[2018-12-20 05:53] LABS: ALBUMIN 2.3 g/dL (3.4-4.8); CALCIUM 8.6 mg/dL (8.4-11.0); CREATININE 3.04 mg/dL (0.55-1.30); POTASSIUM 4.7 mmol/L (3.5-5.1); TOTAL BILIRUBIN 0.4 mg/dL (0.0-1.0)
[2018-12-20] MEDS: HEPARIN SODIUM,PORCINE 2000 UNITS/0.4 ML BOLUS IVP PRN ×2 (06:03→14:01)
[2018-12-20] MEDS: LevALBUTEROL HCL 1.25 MG/0.5 ML *CONC.* VIAL.NEB (XOPENEX CONC.) INH SCH ×2 (07:47→23:58)
[2018-12-20] MEDS: DIVALPROEX SODIUM 125 MG CAP.(DEPAKOTE SPRINKLE) PO SCH ×2 (08:47→23:58)
[2018-12-20] MEDS: ASCORBIC ACID 500 MG TABLET PO SCH ×2 (08:47→21:50)
[2018-12-20] MEDS: CLOPIDOGREL BISULFATE 75 MG TABLET PO SCH (08:47)
[2018-12-20] MEDS: ASPIRIN 81 MG TAB.CHEW PO SCH (08:47)
[2018-12-20] MEDS: FENOFIBRATE 160 MG TABLET PO SCH (08:47)
[2018-12-20] MEDS: MULTIVITAMINS TAB 1 TABLET PO SCH (08:47)
[2018-12-20] MEDS: INSULIN GLARGINE 100 UNITS/ML 10 ML VIAL SQ SCH (08:50)
[2018-12-20] MEDS: CARVEDILOL 6.25 MG TABLET (COREG) PO SCH ×2 (09:42→18:00)
[2018-12-20] MEDS: INSULIN REGULAR, HUMAN 100 UNITS/ML, 10 ML VIAL (humuLIN R) SUBCUT PRN ×3 (11:52→21:54)
[2018-12-20] MEDS: MELATONIN 3 MG TABLET PO SCH (21:49)
[2018-12-20] MEDS: SIMVASTATIN 40 MG TABLET PO SCH (21:50)
[2018-12-20] MEDS: DONEPEZIL HCL 5 MG TABLET (ARICEPT) PO SCH (21:50)
[2018-12-20] MEDS: 0.45% NACL 1,000 ML IV SCH (23:58)
[2018-12-21 00:31] VITALS: BP_SYST 96
[2018-12-21 04:00] VITALS: BP_SYST 102
[2018-12-21 06:02] LABS: ALBUMIN 2.3 g/dL (3.4-4.8); CALCIUM 8.5 mg/dL (8.4-11.0); CREATININE 2.79 mg/dL (0.55-1.30); POTASSIUM 4.2 mmol/L (3.5-5.1); TOTAL BILIRUBIN 0.4 mg/dL (0.0-1.0)
[2018-12-21 06:18] LABS: HEMATOCRIT 32.6 % (36-54); HEMOGLOBIN 10.8 g/dL (14.0-18.0); MEAN CORPUSCULAR HEMOGLOBIN 33 pg (27-31); MEAN CORPUSCULAR HGB CONC 33 % (32-36); MEAN CORPUSCULAR VOLUME 98 fL (79.0-98.0); PLATELET COUNT (AUTO) 277 K/uL (130-430); RED BLOOD CELL COUNT(AUTO) 3.32 MIL/uL (4.2-6.2); WHITE BLOOD COUNT (AUTO) 12.7 K/uL (4.8-10.8)
[2018-12-21] MEDS: LevALBUTEROL HCL 1.25 MG/0.5 ML *CONC.* VIAL.NEB (XOPENEX CONC.) INH SCH ×3 (07:02→23:12)
[2018-12-21 08:17] LABS: BAND % (MANUAL) 6 % (0-6)
[2018-12-21 08:18] LABS: BASOPHILS % (MANUAL) 0 % (0-2); EOSINOPHILS % (MANUAL) 0 % (0-7); LYMPHOCYTES % (MANUAL) 19 % (20-46); MONOCYTES % (MANUAL) 2 % (0-11)
[2018-12-21 08:19] LABS: METAMYELOCYTES % 0 % (0-0)
[2018-12-21] MEDS: FENOFIBRATE 160 MG TABLET PO SCH (08:45)
[2018-12-21] MEDS: CLOPIDOGREL BISULFATE 75 MG TABLET PO SCH (08:45)
[2018-12-21] MEDS: ASCORBIC ACID 500 MG TABLET PO SCH ×2 (08:45→20:10)
[2018-12-21] MEDS: ASPIRIN 81 MG TAB.CHEW PO SCH (08:46)
[2018-12-21] MEDS: DIVALPROEX SODIUM 125 MG CAP.(DEPAKOTE SPRINKLE) PO SCH ×2 (08:46→20:10)
[2018-12-21] MEDS: MULTIVITAMINS TAB 1 TABLET PO SCH (08:46)
[2018-12-21] MEDS: CARVEDILOL 6.25 MG TABLET (COREG) PO SCH ×2 (08:49→17:19)
[2018-12-21] MEDS: INSULIN GLARGINE 100 UNITS/ML 10 ML VIAL SQ SCH (08:53)
[2018-12-21 12:52] VITALS: BP_SYST 127
[2018-12-21 15:26] VITALS: BP_SYST 127
[2018-12-21 17:37] VITALS: BP_SYST 119
[2018-12-21 20:00] VITALS: BP_SYST 117
[2018-12-21] MEDS: SIMVASTATIN 40 MG TABLET PO SCH (20:10)
[2018-12-21] MEDS: DONEPEZIL HCL 5 MG TABLET (ARICEPT) PO SCH (20:10)
[2018-12-21] MEDS: MELATONIN 3 MG TABLET PO SCH (20:11)
[2018-12-21] MEDS: 0.45% NACL 1,000 ML IV SCH (23:15)
[2018-12-22 00:26] VITALS: BP_SYST 104
[2018-12-22] MEDS: 0.45% NACL 1,000 ML IV SCH (05:54)
[2018-12-22] MEDS: LevALBUTEROL HCL 1.25 MG/0.5 ML *CONC.* VIAL.NEB (XOPENEX CONC.) INH SCH ×2 (07:09→15:34)
[2018-12-22 08:00] VITALS: BP_SYST 100
[2018-12-22] MEDS: CARVEDILOL 6.25 MG TABLET (COREG) PO SCH ×2 (08:30→17:52)
[2018-12-22] MEDS: INSULIN GLARGINE 100 UNITS/ML 10 ML VIAL SQ SCH (09:00)
[2018-12-22] MEDS: ASCORBIC ACID 500 MG TABLET PO SCH ×2 (09:08→20:19)
[2018-12-22] MEDS: CLOPIDOGREL BISULFATE 75 MG TABLET PO SCH (09:08)
[2018-12-22] MEDS: ASPIRIN 81 MG TAB.CHEW PO SCH (09:08)
[2018-12-22] MEDS: DIVALPROEX SODIUM 125 MG CAP.(DEPAKOTE SPRINKLE) PO SCH ×2 (09:08→20:19)
[2018-12-22] MEDS: MULTIVITAMINS TAB 1 TABLET PO SCH (09:08)
[2018-12-22] MEDS: FENOFIBRATE 160 MG TABLET PO SCH (09:08)
[2018-12-22 09:35] LABS: CALCIUM 8.9 mg/dL (8.4-11.0); CHLORIDE 103 mmol/L (98-107); CREATININE 2.33 mg/dL (0.55-1.30); GLUCOSE 103 mg/dL (70-99); POTASSIUM 4.5 mmol/L (3.5-5.1); SODIUM SERUM 136 mmol/L (136-145); UREA NITROGEN, BLOOD 58 mg/dL (8-21)
[2018-12-22 09:36] LABS: GFR AFRICAN AMERICAN 36 mL/min (>90)
[2018-12-22 09:37] LABS: ANION GAP < 3 (5-15)
[2018-12-22 12:04] VITALS: BP_SYST 108
[2018-12-22] MEDS: INSULIN REGULAR, HUMAN 100 UNITS/ML, 10 ML VIAL (humuLIN R) SUBCUT PRN (12:05)
[2018-12-22 15:52] VITALS: BP_SYST 120
[2018-12-22 20:00] VITALS: BP_SYST 109
[2018-12-22] MEDS: SIMVASTATIN 40 MG TABLET PO SCH (20:19)
[2018-12-22] MEDS: DONEPEZIL HCL 5 MG TABLET (ARICEPT) PO SCH (20:19)
[2018-12-22] MEDS: MELATONIN 3 MG TABLET PO SCH (20:20)
[2018-12-23] MEDS: LevALBUTEROL HCL 1.25 MG/0.5 ML *CONC.* VIAL.NEB (XOPENEX CONC.) INH SCH ×4 (00:14→23:27)
[2018-12-23 01:38] VITALS: BP_SYST 119
[2018-12-23] MEDS: 0.45% NACL 1,000 ML IV SCH (04:16)
[2018-12-23 06:08] LABS: BASOPHILS # (AUTO) 0.1 K/uL (0.0-0.2); BASOPHILS % (AUTO) 0.5 % (0.0-2.0); EOSINOPHILS # (AUTO) 0.6 K/uL (0.0-0.4); EOSINOPHILS % (AUTO) 4.2 % (0.0-4.0); HEMATOCRIT 32.8 % (36-54); HEMOGLOBIN 11.2 g/dL (14.0-18.0); LYMPHOCYTES # (AUTO) 1.6 K/uL (1.0-5.5); LYMPHOCYTES % (AUTO) 10.6 % (20.5-51.5); MEAN CORPUSCULAR HEMOGLOBIN 34 pg (27-31); MEAN CORPUSCULAR HGB CONC 34 % (32-36); MEAN CORPUSCULAR VOLUME 98 fL (79.0-98.0); MONOCYTES # (AUTO) 0.6 K/uL (0.0-1.0); MONOCYTES % (AUTO) 3.9 % (1.7-9.3); NEUTROPHILS # (AUTO) 11.9 K/uL (1.8-7.7); NEUTROPHILS % (AUTO) 80.8 % (40.0-70.0); PLATELET COUNT (AUTO) 323 K/uL (130-430); RED BLOOD CELL COUNT(AUTO) 3.33 MIL/uL (4.2-6.2); RED CELL DISTRIBUTION WIDTH 16.1 % (9.0-15.0); WHITE BLOOD COUNT (AUTO) 14.7 K/uL (4.8-10.8)
[2018-12-23 06:46] LABS: ALBUMIN 2.3 g/dL (3.4-4.8); CALCIUM 8.4 mg/dL (8.4-11.0); CREATININE 2.13 mg/dL (0.55-1.30); POTASSIUM 4.3 mmol/L (3.5-5.1); TOTAL BILIRUBIN 0.5 mg/dL (0.0-1.0)
[2018-12-23 08:30] VITALS: BP_SYST 96
[2018-12-23] MEDS: CARVEDILOL 6.25 MG TABLET (COREG) PO SCH ×2 (08:30→17:00)
[2018-12-23] MEDS: INSULIN GLARGINE 100 UNITS/ML 10 ML VIAL SQ SCH (09:00)
[2018-12-23] MEDS: CLOPIDOGREL BISULFATE 75 MG TABLET PO SCH (09:06)
[2018-12-23] MEDS: ASPIRIN 81 MG TAB.CHEW PO SCH (09:06)
[2018-12-23] MEDS: ASCORBIC ACID 500 MG TABLET PO SCH ×2 (09:06→21:15)
[2018-12-23] MEDS: FENOFIBRATE 160 MG TABLET PO SCH (09:06)
[2018-12-23] MEDS: MULTIVITAMINS TAB 1 TABLET PO SCH (09:06)
[2018-12-23] MEDS: DIVALPROEX SODIUM 125 MG CAP.(DEPAKOTE SPRINKLE) PO SCH ×2 (09:06→21:15)
[2018-12-23] MEDS: INSULIN REGULAR, HUMAN 100 UNITS/ML, 10 ML VIAL (humuLIN R) SUBCUT PRN ×3 (11:29→21:18)
[2018-12-23 12:48] VITALS: BP_SYST 90
[2018-12-23 16:50] VITALS: BP_SYST 117
[2018-12-23 20:00] VITALS: BP_SYST 118
[2018-12-23] MEDS: MELATONIN 3 MG TABLET PO SCH (21:13)
[2018-12-23] MEDS: MEGESTROL ACETATE 400 MG/10 ML UDC PO SCH (21:14)
[2018-12-23] MEDS: SIMVASTATIN 40 MG TABLET PO SCH (21:15)
[2018-12-23] MEDS: DONEPEZIL HCL 5 MG TABLET (ARICEPT) PO SCH (21:15)
[2018-12-24 00:44] VITALS: BP_SYST 114
[2018-12-24] MEDS: 0.45% NACL 1,000 ML IV SCH (04:19)
[2018-12-24 06:03] LABS: CREATININE 1.86 mg/dL (0.55-1.30); POTASSIUM 4.6 mmol/L (3.5-5.1)
[2018-12-24] MEDS: LevALBUTEROL HCL 1.25 MG/0.5 ML *CONC.* VIAL.NEB (XOPENEX CONC.) INH SCH ×3 (07:00→23:10)
[2018-12-24 08:36] VITALS: BP_SYST 131
[2018-12-24] MEDS: INSULIN GLARGINE 100 UNITS/ML 10 ML VIAL SQ SCH (09:00)
[2018-12-24] MEDS: FENOFIBRATE 160 MG TABLET PO SCH (09:13)
[2018-12-24] MEDS: ASCORBIC ACID 500 MG TABLET PO SCH ×2 (09:13→21:50)
[2018-12-24] MEDS: DIVALPROEX SODIUM 125 MG CAP.(DEPAKOTE SPRINKLE) PO SCH ×2 (09:13→21:50)
[2018-12-24] MEDS: ASPIRIN 81 MG TAB.CHEW PO SCH (09:13)
[2018-12-24] MEDS: MEGESTROL ACETATE 400 MG/10 ML UDC PO SCH ×2 (09:14→21:49)
[2018-12-24] MEDS: CARVEDILOL 6.25 MG TABLET (COREG) PO SCH ×2 (09:14→17:35)
[2018-12-24] MEDS: CLOPIDOGREL BISULFATE 75 MG TABLET PO SCH (09:14)
[2018-12-24] MEDS: MULTIVITAMINS TAB 1 TABLET PO SCH (09:14)
[2018-12-24] MEDS: INSULIN REGULAR, HUMAN 100 UNITS/ML, 10 ML VIAL (humuLIN R) SUBCUT PRN ×3 (11:48→21:47)
[2018-12-24 12:45] VITALS: BP_SYST 127
[2018-12-24 16:48] VITALS: BP_SYST 137
[2018-12-24 17:50] VITALS: BP_SYST 138
[2018-12-24 20:00] VITALS: BP_SYST 102
[2018-12-24] MEDS: DONEPEZIL HCL 5 MG TABLET (ARICEPT) PO SCH (21:51)
[2018-12-24] MEDS: SIMVASTATIN 40 MG TABLET PO SCH (21:51)
[2018-12-24] MEDS: MELATONIN 3 MG TABLET PO SCH (21:55)
[2018-12-25 01:54] VITALS: BP_SYST 112
[2018-12-25] MEDS: LevALBUTEROL HCL 1.25 MG/0.5 ML *CONC.* VIAL.NEB (XOPENEX CONC.) INH SCH ×3 (07:26→23:00)
[2018-12-25] MEDS: CLOPIDOGREL BISULFATE 75 MG TABLET PO SCH (08:25)
[2018-12-25] MEDS: ASCORBIC ACID 500 MG TABLET PO SCH ×2 (08:26→20:09)
[2018-12-25] MEDS: MEGESTROL ACETATE 400 MG/10 ML UDC PO SCH ×2 (08:27→20:09)
[2018-12-25] MEDS: DIVALPROEX SODIUM 125 MG CAP.(DEPAKOTE SPRINKLE) PO SCH ×2 (08:27→20:09)
[2018-12-25] MEDS: MULTIVITAMINS TAB 1 TABLET PO SCH (08:27)
[2018-12-25] MEDS: ASPIRIN 81 MG TAB.CHEW PO SCH (08:27)
[2018-12-25] MEDS: CARVEDILOL 6.25 MG TABLET (COREG) PO SCH ×2 (08:27→17:35)
[2018-12-25] MEDS: INSULIN GLARGINE 100 UNITS/ML 10 ML VIAL SQ SCH ×2 (08:30→10:10)
[2018-12-25] MEDS: FENOFIBRATE 160 MG TABLET PO SCH (08:32)
[2018-12-25 09:04] VITALS: BP_SYST 114
[2018-12-25 11:01] LABS: BASOPHILS % (AUTO) 0.4 % (0.0-2.0); EOSINOPHILS # (AUTO) 0.1 K/uL (0.0-0.4); EOSINOPHILS % (AUTO) 0.9 % (0.0-4.0); HEMATOCRIT 35.1 % (36-54); HEMOGLOBIN 11.8 g/dL (14.0-18.0); LYMPHOCYTES # (AUTO) 1.3 K/uL (1.0-5.5); LYMPHOCYTES % (AUTO) 11.6 % (20.5-51.5); MEAN CORPUSCULAR HEMOGLOBIN 33 pg (27-31); MEAN CORPUSCULAR HGB CONC 34 % (32-36); MEAN CORPUSCULAR VOLUME 98 fL (79.0-98.0); MONOCYTES # (AUTO) 0.6 K/uL (0.0-1.0); MONOCYTES % (AUTO) 5.6 % (1.7-9.3); NEUTROPHILS # (AUTO) 9.3 K/uL (1.8-7.7); NEUTROPHILS % (AUTO) 81.5 % (40.0-70.0); PLATELET COUNT (AUTO) 273 K/uL (130-430); RED CELL DISTRIBUTION WIDTH 15.6 % (9.0-15.0); WHITE BLOOD COUNT (AUTO) 11.4 K/uL (4.8-10.8)
[2018-12-25 11:08] LABS: CALCIUM 8.6 mg/dL (8.4-11.0); CREATININE 1.84 mg/dL (0.55-1.30); POTASSIUM 4.6 mmol/L (3.5-5.1)
[2018-12-25] MEDS: INSULIN REGULAR, HUMAN 100 UNITS/ML, 10 ML VIAL (humuLIN R) SUBCUT PRN ×3 (12:02→20:13)
[2018-12-25 12:20] VITALS: BP_SYST 97
[2018-12-25 16:40] VITALS: BP_SYST 95
[2018-12-25] MEDS: 0.45% NACL 1,000 ML IV SCH (17:16)
[2018-12-25 20:00] VITALS: BP_SYST 148
[2018-12-25] MEDS: SIMVASTATIN 40 MG TABLET PO SCH (20:09)
[2018-12-25] MEDS: DONEPEZIL HCL 5 MG TABLET (ARICEPT) PO SCH (20:09)
[2018-12-25] MEDS: MELATONIN 3 MG TABLET PO SCH (20:14)
[2018-12-26 01:18] VITALS: BP_SYST 101
[2018-12-26] MEDS: LevALBUTEROL HCL 1.25 MG/0.5 ML *CONC.* VIAL.NEB (XOPENEX CONC.) INH SCH ×3 (07:10→23:05)
[2018-12-26 08:00] VITALS: BP_SYST 120
[2018-12-26] MEDS: MULTIVITAMINS TAB 1 TABLET PO SCH (09:20)
[2018-12-26] MEDS: CARVEDILOL 6.25 MG TABLET (COREG) PO SCH ×2 (09:20→17:17)
[2018-12-26] MEDS: ASPIRIN 81 MG TAB.CHEW PO SCH (09:20)
[2018-12-26] MEDS: FENOFIBRATE 160 MG TABLET PO SCH (09:20)
[2018-12-26] MEDS: DIVALPROEX SODIUM 125 MG CAP.(DEPAKOTE SPRINKLE) PO SCH ×2 (09:20→22:32)
[2018-12-26] MEDS: CLOPIDOGREL BISULFATE 75 MG TABLET PO SCH (09:20)
[2018-12-26] MEDS: ASCORBIC ACID 500 MG TABLET PO SCH ×2 (09:20→22:32)
[2018-12-26] MEDS: MEGESTROL ACETATE 400 MG/10 ML UDC PO SCH ×2 (09:21→22:33)
[2018-12-26] MEDS: INSULIN GLARGINE 100 UNITS/ML 10 ML VIAL SQ SCH (09:35)
[2018-12-26] MEDS: INSULIN REGULAR, HUMAN 100 UNITS/ML, 10 ML VIAL (humuLIN R) SUBCUT PRN ×2 (11:43→22:45)
[2018-12-26 12:29] VITALS: BP_SYST 112
[2018-12-26 16:17] VITALS: BP_SYST 100
[2018-12-26 20:00] VITALS: BP_SYST 102
[2018-12-26] MEDS: DONEPEZIL HCL 5 MG TABLET (ARICEPT) PO SCH (22:32)
[2018-12-26] MEDS: SIMVASTATIN 40 MG TABLET PO SCH (22:33)
[2018-12-26] MEDS: MELATONIN 3 MG TABLET PO SCH (22:35)
[2018-12-27] MEDS: 0.45% NACL 1,000 ML IV SCH (01:01)
[2018-12-27 01:02] VITALS: BP_SYST 115
[2018-12-27 07:02] VITALS: BP_SYST 118
[2018-12-27] MEDS: LevALBUTEROL HCL 1.25 MG/0.5 ML *CONC.* VIAL.NEB (XOPENEX CONC.) INH SCH ×2 (07:07→15:41)
[2018-12-27 08:09] LABS: CALCIUM 8.6 mg/dL (8.4-11.0); CREATININE 2.02 mg/dL (0.55-1.30); POTASSIUM 4.8 mmol/L (3.5-5.1)
[2018-12-27 08:26] VITALS: BP_SYST 110
[2018-12-27] MEDS: CARVEDILOL 6.25 MG TABLET (COREG) PO SCH ×2 (08:30→18:00)
[2018-12-27] MEDS: MEGESTROL ACETATE 400 MG/10 ML UDC PO SCH (10:18)
[2018-12-27] MEDS: FENOFIBRATE 160 MG TABLET PO SCH (10:19)
[2018-12-27] MEDS: MULTIVITAMINS TAB 1 TABLET PO SCH (10:19)
[2018-12-27] MEDS: ASPIRIN 81 MG TAB.CHEW PO SCH (10:19)
[2018-12-27] MEDS: CLOPIDOGREL BISULFATE 75 MG TABLET PO SCH (10:19)
[2018-12-27] MEDS: DIVALPROEX SODIUM 125 MG CAP.(DEPAKOTE SPRINKLE) PO SCH (10:19)
[2018-12-27] MEDS: ASCORBIC ACID 500 MG TABLET PO SCH (10:19)
[2018-12-27] MEDS: INSULIN GLARGINE 100 UNITS/ML 10 ML VIAL SQ SCH (10:23)
[2018-12-27 11:51] VITALS: BP_SYST 100
[2018-12-27] MEDS: INSULIN REGULAR, HUMAN 100 UNITS/ML, 10 ML VIAL (humuLIN R) SUBCUT PRN (12:25)
[2018-12-27 15:04] VITALS: BP_SYST 101
[2018-12-27 16:04] VITALS: BP_SYST 101
== END 2018-12-27 18:50 | DRG 280 ==
LOC: SED 18:08 → SIC 21:36 → STU 12-20 19:43
PROVIDERS: ADMIT Family Medicine; ATTEND Family Medicine
DX: I21.4 Non-ST elevation (NSTEMI) myocardial infarction (principal); N17.0 Acute kidney failure with tubular necrosis; G93.41 Metabolic encephalopathy; I13.0 Hypertensive heart and chronic kidney disease with heart failure and stage 1 through stage 4 chronic kidney disease, or unspecified chronic kidney disease; N18.4 Chronic kidney disease, stage 4 (severe); I50.30 Unspecified diastolic (congestive) heart failure; E11.22 Type 2 diabetes mellitus with diabetic chronic kidney disease; E11.51 Type 2 diabetes mellitus with diabetic peripheral angiopathy without gangrene; J44.9 Chronic obstructive pulmonary disease, unspecified; Z60.2 Problems related to living alone; D64.9 Anemia, unspecified; G40.909 Epilepsy, unspecified, not intractable, without status epilepticus; E78.5 Hyperlipidemia, unspecified; F03.90 Unspecified dementia, unspecified severity, without behavioral disturbance, psychotic disturbance, mood disturbance, and anxiety; F17.200 Nicotine dependence, unspecified, uncomplicated; Z95.0 Presence of cardiac pacemaker; Z79.82 Long term (current) use of aspirin; Z79.899 Other long term (current) drug therapy; Z89.421 Acquired absence of other right toe(s); Z79.4 Long term (current) use of insulin
CPT/HCPCS: 36415; 36600; 71045; 76770; 80048; 80053; 81000-TC; 82550-TC; 82803-TC; 82962; 83605; 83735-TC; 83880; 84484; 85007; 85025; 85027; 85379; 85610-TC; 85730-TC; 87040-TC; 87081; 87086; 93005; 93306; 94640; 94760; 96365; 96367; 96375; 97116-GP; 97530-GP; 99285; G0378; J1644; J1815; J1940; J1956; J2543; J2930; J7612; J7620

== ENCOUNTER 2019-03-05 18:44 | Emergency (ER) | payer OTHER, MEDICAID ==
[~2019-03-05] VITALS: Ht 160 cm; Wt 54.4 kg
[~2019-03-05 18:44] MED LIST changes: -DOXY100T2 PO; -FLEETMO RC; -MELA3TAB PO; +MELA3TAB64 PO; +NA P133E41 RC
[2019-03-05 18:50] VITALS: BP_SYST 113
[2019-03-05 22:20] VITALS: BP_SYST 112
== END 2019-03-05 22:20 | disposition home or self-care (01) ==
LOC: SED 18:44
DX: S50.811A Abrasion of right forearm, initial encounter (principal); S40.811A Abrasion of right upper arm, initial encounter; S50.311A Abrasion of right elbow, initial encounter; S60.811A Abrasion of right wrist, initial encounter; S09.90XA Unspecified injury of head, initial encounter; J44.9 Chronic obstructive pulmonary disease, unspecified; E11.9 Type 2 diabetes mellitus without complications; F03.90 Unspecified dementia, unspecified severity, without behavioral disturbance, psychotic disturbance, mood disturbance, and anxiety; I10 Essential (primary) hypertension; E78.5 Hyperlipidemia, unspecified; Z86.79 Personal history of other diseases of the circulatory system; Z79.82 Long term (current) use of aspirin; Z79.899 Other long term (current) drug therapy; X58.XXXA Exposure to other specified factors, initial encounter; Y93.89 Activity, other specified; Y92.89 Other specified places as the place of occurrence of the external cause; Y99.8 Other external cause status
CPT/HCPCS: 70450-TC; 72125-TC; 93005; 99284

== ENCOUNTER 2020-03-30 18:50 | Inpatient (IN) | payer OTHER, MEDICAID, SELFPAY ==
[~2020-03-30] VITALS: Ht 167.6 cm; Wt 59.0 kg
[~2020-03-30 18:50] MED LIST changes: -ACET-2165 PO; +ACET325T PO; +MELA3TAB41 PO; -MELA3TAB64 PO
[2020-03-30 19:10] VITALS: BP_SYST 94
--- NOTE | 2020-03-30 19:10 | NUR ---
PATIENT TRIAGED AND IN AMBULANCE RNEY AWAITING BED PLACEMENT.
[2020-03-30] MEDS ORDERED: cefTRIAXone 1 GM IVPB PREMIX 50 ML IV ONE (19:30)
[2020-03-30] MEDS ORDERED: NS 1000 ML IV.SOLN IV ONE (19:30)
--- NOTE | 2020-03-30 19:59 | NUR ---
ER Dr. vickers at bedside examining patient.
[2020-03-30] MEDS ORDERED: LIP10 PO (20:02)
[2020-03-30] MEDS ORDERED: ACID1CAP PO (20:03)
[2020-03-30] MEDS ORDERED: INSU100V9 SQ (20:04)
[2020-03-30] MEDS ORDERED: FENO145T PO (20:05)
[2020-03-30] MEDS ORDERED: HEPA500015 SUBCUT (20:06)
[2020-03-30] MEDS ORDERED: DOCU-144 PO (20:07)
[2020-03-30] MEDS ORDERED: LEVA1.2527 NEB (20:07)
[2020-03-30] MEDS ORDERED: MELA3TAB69 PO (20:09)
[2020-03-30] MEDS ORDERED: MIDO5TAB4 PO (20:10)
--- NOTE | 2020-03-30 20:10 | NUR ---
LAB AT BEDSIDE FOR BLOOD DRAW.
[2020-03-30] MEDS ORDERED: AMIN30LI2 PO (20:13)
[2020-03-30] MEDS ORDERED: NUT.237L67 PO (20:13)
[2020-03-30] MEDS ORDERED: FOLI0.8T42 PO (20:14)
[2020-03-30] MEDS ORDERED: SEVE2.4P3 PO (20:16)
[2020-03-30] MEDS ORDERED: CHOL500013 (20:16)
[2020-03-30] MEDS ORDERED: SSNOVOLOG SUBCUT (20:25)
--- NOTE | 2020-03-30 20:25 | NUR ---
Medication reconciliation completed with information provided by Benny Engel. Any prior medication reconciliation on file was reviewed and corrected.
--- NOTE | 2020-03-30 20:25 | NUR ---
Patient transported to radiology via GURNEY, accompanied by STAFF.
[2020-03-30 20:30] LABS: BASOPHILS % (AUTO) 0.2 % (0.0-2.0); EOSINOPHILS % (AUTO) 0.5 % (0.0-4.0); HEMOGLOBIN 11.7 g/dL (14.0-18.0); LYMPHOCYTES # (AUTO) 0.6 K/uL (1.0-5.5); LYMPHOCYTES % (AUTO) 6.8 % (20.5-51.5); MEAN CORPUSCULAR HEMOGLOBIN 32 pg (27-31); MEAN CORPUSCULAR HGB CONC 32 % (32-36); MEAN CORPUSCULAR VOLUME 100 fL (79.0-98.0); MONOCYTES # (AUTO) 0.3 K/uL (0.0-1.0); MONOCYTES % (AUTO) 3.3 % (1.7-9.3); NEUTROPHILS # (AUTO) 8.4 K/uL (1.8-7.7); NEUTROPHILS % (AUTO) 89.2 % (40.0-70.0); PLATELET COUNT (AUTO) 103 K/uL (130-430); WHITE BLOOD COUNT (AUTO) 9.4 K/uL (4.8-10.8)
--- NOTE | 2020-03-30 20:40 | NUR ---
patient returned from radiology.
--- NOTE | 2020-03-30 20:43 | NUR ---
Patient to ER bed 5 to gown for evaluation. Side rails up.
--- NOTE | 2020-03-30 20:45 | NUR ---
pt arrived on 3L of O2 nasal cannula, baseline.
--- NOTE | 2020-03-30 20:45 | NUR ---
pt BIB BLS a&o x1 from [facility] c/o low nutritional intake and failure to thrive. pt refusing to eat. pt receives dialysis MWF and went to dialysis earlier today. pt baseline a&o x1. pt arrives quiton cath upper right chest.
[2020-03-30 20:55] LABS: ALANINE AMINOTRANSFERASE 56 U/L (12-78); ALBUMIN 2.4 g/dL (3.4-4.8); ANION GAP 10 (5-15); ASPARTATE AMINOTRANSFERASE 73 U/L (10-37); CALCIUM 8.4 mg/dL (8.4-11.0); CHLORIDE 102 mmol/L (98-107); CREATININE 3.12 mg/dL (0.55-1.30); GLUCOSE 117 mg/dL (70-99); POTASSIUM 3.8 mmol/L (3.5-5.1); SODIUM SERUM 138 mmol/L (136-145); TOTAL BILIRUBIN 1.1 mg/dL (0.0-1.0); UREA NITROGEN, BLOOD 22 mg/dL (8-21)
--- NOTE | 2020-03-30 20:57 | NUR ---
RADIOLOGY AT BEDSIDE FOR CHEST XRAY.
--- NOTE | 2020-03-30 21:00 | NUR ---
# 16 FR Jain catheter with use of sterile technique. Immediate return of 10 cc PATRICE urine noted. Bedside drainage bag placed below level of bladder. UrinE sample collected and sent to lab. Pt tolerated procedure WELL.
[2020-03-30 21:15] LABS: C-REACTIVE PROTEIN QUANT 10.5 mg/dL (0-0.5)
--- NOTE | 2020-03-30 21:15 | NUR ---
RECTAL TEMP 97.0. MD AWARE.
--- NOTE | 2020-03-30 21:20 | NUR ---
RECEIVED ADMIT ORDERS FROM DR. NORIEGA.
--- NOTE | 2020-03-30 21:24 | NUR ---
SPOKE WITH KRISTEN RODRIGUEZ RN TO REQUEST TELE BED.
--- NOTE | 2020-03-30 21:30 | NUR ---
# 22 gauge angiocath placed to left hand. Use of asceptic technique. Opsite placed over site. Blood return noted. Flushed with 10 cc of normal saline. No evidence of infiltration noted. Patient tolerated well.
[2020-03-30 21:35] LABS: BILIRUBIN,URINE 2+ (NEGATIVE); BLOOD, URINE 1+ (NEGATIVE); CLARITY/URINE SL CLOUDY (CLEAR); COLOR,URINE BROWN (YELLOW); GLUCOSE,URINE NEGATIVE (NEGATIVE); KETONES,URINE TRACE (NEGATIVE); LEUKOCYTE ESTERASE ,URINE 1+ (NEGATIVE); NITRITE, URINE NEGATIVE (NEGATIVE); PH,URINE 5.5 (5.0-8.0); PROTEIN URINE 2+ (NEGATIVE); UROBILINOGEN,URINE 0.2 (0.2-1.0)
--- NOTE | 2020-03-30 21:40 | NUR ---
# 24 gauge angiocath placed to right thumb. Use of asceptic technique. Opsite placed over site. Blood return noted. Flushed with 10 cc of normal saline. No evidence of infiltration noted. Patient tolerated well.
--- NOTE | 2020-03-30 21:45 | NUR ---
Dr. Todd at bedside assessing patient.
[2020-03-30 21:52] LABS: BACTERIA,URINE FEW /HPF (None Seen); MUCUS,URINE 1+ /LPF (None Seen); WBC,URINE 20-50 /HPF (0-3)
[2020-03-30 21:53] LABS: HYALINE CASTS, URINE 0-10 /LPF (None Seen)
--- NOTE | 2020-03-30 21:55 | NUR ---
Patient's code status is full code paperwork completed and placed in chart.
[2020-03-30] MEDS ORDERED: LevALBUTEROL HCL 1.25 MG/0.5 ML *CONC.* VIAL.NEB (XOPENEX CONC.) INH PRN (22:00)
[2020-03-30] MEDS ORDERED: NITROGLYCERIN 0.4 MG TAB.SUBL SL PRN (22:00)
[2020-03-30] MEDS ORDERED: INSULIN ASPART 100 UNITS/ML, 10 ML VIAL (NovoLOG) SUBCUT PRN (22:00)
[2020-03-30 22:10] VITALS: BP_SYST 94
--- NOTE | 2020-03-30 22:21 | NUR ---
pt ripped out 24g IV on right thumb. bleeding controlled.
--- NOTE | 2020-03-30 23:36 | NUR ---
patient laying in bed comfortably, no signs of acute distress. even and unlabored breathing. will continue to monitor.
--- NOTE | 2020-03-31 00:03 | NUR ---
Consultation Paged Reason for Consultation: esrf Was consult called: Y Person who was notified: Rosa Consulting Physician: Dr. Bashir Ordering Physician: Dr. Todd
--- NOTE | 2020-03-31 00:23 | NUR ---
Consultation Paged Reason for Consultation: chf Was consult called: Y Person who was notified: Rosa Consulting Physician: Dr. Crawley Ordering Physician: Dr. Todd
--- NOTE | 2020-03-31 00:37 | NUR ---
flu swab collected and sent to lab.
--- NOTE | 2020-03-31 01:04 | NUR ---
lab at bedside drawing second lactic.
--- NOTE | 2020-03-31 01:33 | NUR ---
COVID SWAB COLLECTED AND SENT TO LAB.
--- NOTE | 2020-03-31 02:05 | NUR ---
Patient will be admitted to care of [facility]. Admitted to TELE unit. Will go to room 121. Belongings list completed. Complete and up to date summary report printed. SBAR report to be given at bedside with opportunity for questions.
--- NOTE | 2020-03-31 02:15 | NUR ---
Transfer to TELE via ACLS protocol. Licensed nurse present. IV present no signs or symptoms of infiltration.
[2020-03-31 02:28] VITALS: BP_SYST 92
--- NOTE | 2020-03-31 02:28 | NUR ---
ADMISSION NOTE: Received patient from ER via keira, received report from RAMBO RASHID. Patient admitted with diagnosis of ACUTE CHF EXACERBATION. Patient oriented to hospital routine, call light, toileting and safety-patient verbalized understanding. Safety, fall, isolation precautions for r/o COVID in place.
[2020-03-31 02:45] VITALS: BP_SYST 92
--- NOTE | 2020-03-31 03:20 | NUR ---
Flu vaccination status: Called Benny Engel to inquire regarding patient's flu vaccination status. Per Benny Engel, patient received flu vaccine on March 04, 2020.
[2020-03-31] MEDS: SEVELAMER CARBONATE 800 MG TABLET PO SCH ×3 (07:00→17:00)
[2020-03-31 07:08] LABS: BASOPHILS # (AUTO) 0.1 K/uL (0.0-0.2); BASOPHILS % (AUTO) 0.5 % (0.0-2.0); EOSINOPHILS % (AUTO) 0.1 % (0.0-4.0); HEMATOCRIT 37.4 % (36-54); HEMOGLOBIN 11.7 g/dL (14.0-18.0); LYMPHOCYTES # (AUTO) 0.4 K/uL (1.0-5.5); LYMPHOCYTES % (AUTO) 3.6 % (20.5-51.5); MEAN CORPUSCULAR HEMOGLOBIN 32 pg (27-31); MEAN CORPUSCULAR HGB CONC 31 % (32-36); MEAN CORPUSCULAR VOLUME 101 fL (79.0-98.0); MONOCYTES # (AUTO) 0.3 K/uL (0.0-1.0); MONOCYTES % (AUTO) 2.5 % (1.7-9.3); NEUTROPHILS # (AUTO) 10.9 K/uL (1.8-7.7); NEUTROPHILS % (AUTO) 93.3 % (40.0-70.0); PLATELET COUNT (AUTO) 114 K/uL (130-430); RED BLOOD CELL COUNT(AUTO) 3.72 MIL/uL (4.2-6.2); RED CELL DISTRIBUTION WIDTH 19.5 % (9.0-15.0); WHITE BLOOD COUNT (AUTO) 11.6 K/uL (4.8-10.8)
[2020-03-31 07:16] LABS: ANION GAP 12 (5-15); CALCIUM 8.5 mg/dL (8.4-11.0); CHLORIDE 102 mmol/L (98-107); CREATININE 3.46 mg/dL (0.55-1.30); GLUCOSE 131 mg/dL (70-99); SODIUM SERUM 139 mmol/L (136-145); UREA NITROGEN, BLOOD 24 mg/dL (8-21)
--- NOTE | 2020-03-31 07:24 | NUR ---
Opening Note received SBAR report from cage shift manager RN, patient resting in bed, respirations even and unlabored on 4L nasal cannula, no acute distress noted, educated patient on use of call light and asked to call for assistance, patient verbalized understanding, call light in reach, bed in low and locked position, bed alarm on.
[2020-03-31 08:00] VITALS: BP_SYST 145
[2020-03-31] MEDS: LevALBUTEROL HCL 1.25 MG/0.5 ML *CONC.* VIAL.NEB (XOPENEX CONC.) INH SCH ×3 (08:42→20:27)
--- NOTE | 2020-03-31 08:55 | NUR ---
Physician Rounds Dr. Crawley at bedside examining patient, informed him of critical lab troponin 0.279, no new orders.
[2020-03-31] MEDS ORDERED: NON-FORMULARY MEDICATION (Amino Acids/Protein Hydrolys (Pro-Stat Liquid) 30 ML) PO SCH (09:00)
[2020-03-31] MEDS ORDERED: NUT TX IMPAIRED RENAL FXN SOY PO SCH (09:00)
[2020-03-31] MEDS: DOCUSATE SODIUM 100 MG CAPSULE PO SCH ×2 (09:27→21:59)
[2020-03-31] MEDS: INSULIN GLARGINE 100 UNITS/ML 10 ML VIAL SQ SCH (09:27)
[2020-03-31] MEDS: NEPHROVITE, (FOLIC ACID/VITAMIN B COMP W-C 1 TAB) PO SCH (09:27)
[2020-03-31] MEDS: LACTOBACILLUS RHAMNOSUS GG 1 CAP CAPSULE PO SCH (09:27)
[2020-03-31] MEDS: HEPARIN SODIUM,PORCINE 5,000 UNITS/ML VIAL SUBCUT SCH ×2 (09:28→21:59)
--- NOTE | 2020-03-31 09:37 | NUR ---
Physician Rounds Dr. Bashir at bedside examining patient.
--- NOTE | 2020-03-31 09:59 | NUR ---
Nutrition Update Caleb scale 11 noted. Pt admitted for Acute CHF Exacerbation Diet: CCHO Diet BMI: 20.2 kg/m2 RD to follow per nutrition care standards.
[2020-03-31] MEDS: cefTRIAXone 1 GM IVPB PREMIX 50 ML IV SCH (10:00)
--- NOTE | 2020-03-31 10:00 | NUR ---
Video Call patients daughter Keena Ly is aware of orders for hemodialysis, per Keena she would like to speak with her father on a video call, attempted to video call Keena multiple times, video call was unable to connect, offered to have Keena speak with her father on the telephone, Keena is agreeable, assisted patient to speak with his daughter on the telephone.
--- NOTE | 2020-03-31 10:47 | NUR ---
Spoke with patients daughter spoke with patients daughter Keena Ly, she has given telephone consent for PICC line placement, verified with second RN, per Keena she would like to speak with Dr. Bashir before giving consent for hemodialysis, called Dr. Bashir's office and spoke with Estrella, informed her that Keena would like Dr. Bashir to call her, per Estrella she has paged Dr. Bashir. Addendum: 03/31/20 at 1122 by Jen Barragan RN spoke with Dr. Bashir, he is aware that patients daughter would like to speak with him and will call her.
[2020-03-31 12:00] VITALS: BP_SYST 98
[2020-03-31] MEDS: INSULIN REGULAR, HUMAN 100 UNITS/ML, 10 ML VIAL (humuLIN R) SUBCUT PRN (12:20)
--- NOTE | 2020-03-31 12:25 | NUR ---
Hemodialysis consent for hemodialysis has been obtained and is signed and in the chart, operations systems specialist at bedside for hemodialysis, no acute distress noted.
[2020-03-31] MEDS ORDERED: HEPARIN SODIUM,PORCINE 5,000 UNITS/ML VIAL IV ONE (12:45)
--- NOTE | 2020-03-31 12:48 | NUR ---
HIGH ALERT NOTE: Called Dr. Britney Medel back identified within the medical roster to verify physician authenticity.
--- NOTE | 2020-03-31 13:27 | NUR ---
PICC line consent for PICC line placement is signed and in the chart, vascular RN at bedside for placement of PICC line, she is aware of dialysis access to right subclavian, no acute distress noted.
--- NOTE | 2020-03-31 14:28 | NUR ---
Midline placed per vascular RN she was unable to place a PICC line, midline was placed to patients left upper arm, biopatch in place, transparent dressing in place, no bleeding noted, patient tolerated well, no acute distress noted, per vascular RN midline is ready to use.
--- NOTE | 2020-03-31 14:39 | NUR ---
Hemodialysis hemodialysis completed by winterizer, 200ml out, winterizer changed right subclavian permacath dressing, no bleeding noted, no acute distress noted, patient denies any pain.
[2020-03-31 16:09] VITALS: BP_SYST 92
--- NOTE | 2020-03-31 16:31 | NUR ---
Dietitian Recommendations *Recommend CCHO, Finely Chopped w/ Moist Diet. *Recommend Nepro BID to provide additional 850 kcal, 38 g protein to promote PO intake. Please see Nutrition Assessment for details. BRIANRD
--- NOTE | 2020-03-31 16:35 | NUR ---
Spoke with Patients daughter spoke with patients daughter Keena, updated her on patient, informed her that hemodialysis was completed with 200ml out, informed her that midline was placed, Keena verbalized understanding, per Keena she would like Dr. Todd to call her when he rounds.
--- NOTE | 2020-03-31 17:55 | NUR ---
Physician Rounds Dr. Jennings at bedside examining patient, informed him that patient had poor oral intake today, patient only had a few bites of breakfast, Dr. Todd attempted to feed patient, patient ate a few bites of soup, informed Dr. Todd that patients daughter Keena would like to speak with him, per Dr. Todd he will call the patients daughter.
--- NOTE | 2020-03-31 19:07 | NUR ---
Closing Note SBAR report given to receiving RN, patient resting in bed, respirations even and unlabored on 4L nasal cannula, no acute distress noted, educated patient on use of call light and asked to call for assistance, patient verbalized understanding, call light in reach, bed in low and locked position, bed alarm on, care endorsed to overnight cashier RN.
--- NOTE | 2020-03-31 19:30 | NUR ---
OPENING NOTES RECEIVED REPORT FROM DAY SHIFT RN. PT RESTING IN BED. BREATHING EVEN AND UNLABORED TO O2 VIA NC AT 4L. NO SIGNS OF RESPIRATORY DISTRESS NOTED. LEFT UPPER ARM MIDLINE INTACT. BED ALARM ON, LOCKED IN LOWEST POSITION. CLOSE TO NURSING STATION. CALL LIGHT WITHIN EACH. SAFETY, FALL, AND ISOLATION PRECAUTIONS MAINTAINED. WILL CONTINUE TO MONITOR.
[2020-03-31 20:00] VITALS: BP_SYST 97
[2020-03-31] MEDS: ATORVASTATIN 10 MG TABLET PO SCH (21:59)
[2020-03-31] MEDS: MELATONIN 3 MG TABLET PO SCH (21:59)
[2020-03-31] MEDS: FENOFIBRATE NANOCRYSTALLIZED 48 MG TABLET (TRICOR) PO SCH (21:59)
[2020-04-01] VITALS: BP_SYST 83
[2020-04-01] MEDS: LevALBUTEROL HCL 1.25 MG/0.5 ML *CONC.* VIAL.NEB (XOPENEX CONC.) INH SCH ×4 (01:13→20:08)
--- NOTE | 2020-04-01 06:54 | NUR ---
ACCU-CHECK BLOOD SUGAR OF 68. OFFERED ORANGE JUICE, PT DRANK SOME OF IT. NO S/S OF DISTRESS NOTED.
[2020-04-01 06:58] LABS: EOSINOPHILS # (AUTO) 0.1 K/uL (0.0-0.4); LYMPHOCYTES # (AUTO) 0.7 K/uL (1.0-5.5); MONOCYTES # (AUTO) 0.4 K/uL (0.0-1.0); RED BLOOD CELL COUNT(AUTO) 3.74 MIL/uL (4.2-6.2)
[2020-04-01] MEDS: SEVELAMER CARBONATE 800 MG TABLET PO SCH ×3 (07:00→17:00)
[2020-04-01 07:51] LABS: ALANINE AMINOTRANSFERASE 50 U/L (12-78); ALBUMIN 2.4 g/dL (3.4-4.8); ANION GAP 8 (5-15); ASPARTATE AMINOTRANSFERASE 70 U/L (10-37); CALCIUM 8.1 mg/dL (8.4-11.0); CHLORIDE 103 mmol/L (98-107); GLUCOSE 65 mg/dL (70-99); POTASSIUM 3.6 mmol/L (3.5-5.1); SODIUM SERUM 140 mmol/L (136-145); THYROID STIMULATING HORMONE 2.57 uIu/mL (0.36-3.74); TOTAL BILIRUBIN 0.7 mg/dL (0.0-1.0); UREA NITROGEN, BLOOD 18 mg/dL (8-21)
--- NOTE | 2020-04-01 08:00 | NUR ---
Initial note: Patient is sleeping , but arousal and opens eyes when being calls. He refuses to talk at this time. Try to feed him breakfast, but he closes his mouth. He has Perma-Cath for HD on right upper chest, Midline on right upper arm, and Jain catheter in placed with dark zechariah minimal amount of urine. Will continue monitor.
[2020-04-01 08:03] LABS: BASOPHILS % (AUTO) 0.3 % (0.0-2.0); EOSINOPHILS % (AUTO) 0.7 % (0.0-4.0); HEMATOCRIT 37.9 % (36-54); HEMOGLOBIN 11.8 g/dL (14.0-18.0); LYMPHOCYTES % (AUTO) 7.1 % (20.5-51.5); MEAN CORPUSCULAR HEMOGLOBIN 32 pg (27-31); MEAN CORPUSCULAR HGB CONC 31 % (32-36); MEAN CORPUSCULAR VOLUME 101 fL (79.0-98.0); NEUTROPHILS # (AUTO) 8.3 K/uL (1.8-7.7); NEUTROPHILS % (AUTO) 87.9 % (40.0-70.0); PLATELET COUNT (AUTO) 115 K/uL (130-430); RED CELL DISTRIBUTION WIDTH 19.6 % (9.0-15.0); WHITE BLOOD COUNT (AUTO) 9.5 K/uL (4.8-10.8)
[2020-04-01] MEDS: HEPARIN SODIUM,PORCINE 5,000 UNITS/ML VIAL SUBCUT SCH ×2 (08:46→21:08)
[2020-04-01 08:59] VITALS: BP_SYST 91
[2020-04-01] MEDS: INSULIN GLARGINE 100 UNITS/ML 10 ML VIAL SQ SCH (09:00)
[2020-04-01] MEDS ORDERED: MIDODRINE HCL 5 MG TABLET (PROAMATINE) PO SCH (09:00)
[2020-04-01] MEDS: MEGESTROL ACETATE 400 MG/10 ML UDC PO SCH (09:00)
[2020-04-01] MEDS: DOCUSATE SODIUM 100 MG CAPSULE PO SCH ×2 (09:00→21:00)
[2020-04-01] MEDS: MIDODRINE HCL 5 MG TABLET (PROAMATINE) PO SCH ×3 (09:00→21:07)
[2020-04-01] MEDS: LACTOBACILLUS RHAMNOSUS GG 1 CAP CAPSULE PO SCH (09:00)
[2020-04-01] MEDS: NEPHROVITE, (FOLIC ACID/VITAMIN B COMP W-C 1 TAB) PO SCH (09:00)
[2020-04-01 09:06] LABS: CHOLESTEROL 101 mg/dL (<200); HDL CHOLESTEROL 38 mg/dL (>45); LDL CHOLESTEROL 40 mg/dL (<100); TRIGLYCERIDES 118 mg/dL (30-150)
[2020-04-01] MEDS: cefTRIAXone 1 GM IVPB PREMIX 50 ML IV SCH (09:15)
[2020-04-01] MEDS ORDERED: GLUCOSE (DEXTROSE) ORAL GEL -Adults PO PRN (10:00)
[2020-04-01] MEDS ORDERED: DEXTROSE 50%-WATER 50 ML DISP.SYRIN IVP PRN (10:00)
[2020-04-01] MEDS ORDERED: D5W 1,000 ML IV PRN (10:00)
--- NOTE | 2020-04-01 10:16 | NUR ---
Low BP, Low BS: Patient has low BS and refused to eat and to take oral medication. Also low BP. Call and spoke to regarding the issues. He states to call patient's daughter for G-tube placement consent , if she consent to get GI consult for PEG. Call and left Keena<patient's daughter> a message.Will F/U on that.
--- NOTE | 2020-04-01 11:09 | NUR ---
REFUSED PEG: THE DAUGHTER HAS CALLED AND STATES PER POLST FORM NO ARTIFICIAL NUTRITION TUBE. SHE ALSO STATS SHE WILL HONOR PATIENT'S DECISION. NO ON PEG.
--- NOTE | 2020-04-01 11:44 | NUR ---
WOUND EVALUATION: Wound Consult received from Dr. Todd. Thank you, Dr. Todd, for the consult. Patient received in a [place] Bed with an Isoflex UMER mattress with low air loss therapy, awake, alert, non-verbal. Patient is unable to turn in bed independently. Caleb Score is a 14. Past Medical History: Hypertension, Diabetes Mellitus, End-Stage Renal Failure, CHF. Recent Labs: WBC 9.5, RBC 3.74, hemoglobin 11.8, hematocrit 37.9, BUN 18, creatinine 3.00, glucose 65, calcium 8.1, AST 70, serum total protein 6.0, albumin 2.4, D-dimer 1210. Microbiology: Blood culture results x2 in progress. Urine culture results in progress. MRSA screen results negative. Intrinsic factors that delay wound healing: Diabetes Mellitus, End-Stage Renal Failure, CHF, Hypoalbuminemia. Extrinsic factors that delay wound healing: Decreased mobility. Wound Assessment: 1. Sacral area: Pressure ulcer, present on admission. Wound bed has 90% pink tissue, 10% light pink tissue. No odor, no drainage. Periwound intact. Wound measures 2.0 cm x 1.6 cm. Recommend: Cleanse wound with normal saline. Apply moisture barrier cream to richie-wound. Apply Venelex ointment to wound bed. Cover with foam dressing. Perform wound care daily, and as needed for dressing soiling or dislodgement. 2. Buttock/Perianal area: Unstageable pressure ulcer, present on admission. Wound bed has 100% yellow tissue. No odor, no drainage. Periwound intact. Wound measures 1.1 cm x 0.2 cm. Recommend: Cleanse wound with normal saline. Apply moisture barrier cream to richie-wound. Apply Venelex ointment to wound bed. Cover with foam dressing. Perform wound care daily, and as needed for dressing soiling or dislodgement. 3. Left lower extremity: Multiple scabs and hemosiderin staining, present on admission. No odor, no drainage. Dry, stable. 4. Right lower extremity: Multiple scabs and hemosiderin staining, present on admission. No odor, no drainage. Dry, stable. Recommend: No dressings needed. Continue to monitor sites every shift. 5. Left heel: Blanchable red erythema, present on admission. 6. Right heel: Blanchable bright red erythema, present on admission. Recommend: Elevate, offload and float bilateral heels with one pillow lengthwise under each extremity at all times. 7. Left lateral forearm: Scab, present on admission. No odor, no drainage. Dry, stable. Extremity has multiple areas of ecchymosis. 8. Right upper extremity: Extremity has multiple areas of ecchymosis, present on admission. Recommend: No dressings needed. Continue to monitor sites every shift. Also recommend: Reposition patient side to side onlyevery 2 hours with pillow support and off-load pressure areas with pillows for pressure re-distribution. Offload, elevate and float bilateral heels with pillows. Perform skin care and monitor skin integrity Q shift. Use moisture barrier cream on buttocks and other moisture susceptible areas QID and as needed for soiling. Place patient on a low air-loss mattress.
[2020-04-01] MEDS: AZITHROMYCIN 500 MG in NS 250 ML IV SCH (12:07)
[2020-04-01 12:16] VITALS: BP_SYST 114
[2020-04-01 16:14] VITALS: BP_SYST 91
[2020-04-01] MEDS: BALSAM PERU/CASTOR OIL 60 GM OINT...G. TP SCH (18:28)
--- NOTE | 2020-04-01 19:00 | NUR ---
CLOSING NOTE: PATIENT IS STABLE, NO ACUTE DISTRESS,BUT STILL REFUSED TO EAT OR DRINK. MALDONADO CATHETER HAS ONLY VERY DARK PATRICE 30 ML URINE.
--- NOTE | 2020-04-01 19:10 | NUR ---
OPENING NOTE/ RECEIVE PATIENTS' HEARING AID PATIENT AWAKE, ABLE TO FOLLOW ON SIMPLE COMMANDS, NO SIGNS OF RESPIRATORY DISTRESS AND DISCOMFORT NOTED. BREATHING EVEN AND UNLABORED. ON 2L OF OXYGEN VIA [employer] CANULA TOLERATING WELL. O2 SATURATION OF 99%. YOLIS CATHETER NOTED ON THE RIGHT UPPER CHEST. MALDONADO ATTACHED AND SECURED, LESS THAN 10ML OF URINE NOTED ON THE DRAIN BAG. HEARING AID WAS BOUGHT BY FAMILY, GIVEN TO PATIENT AT THIS TIME. BED LOCKED AND IN LOWEST POSITION. SAFETY AND ISOLATION PRECAUTIONS IN PLACE. REPOSITIONED PATIENT. NEEDS ATTENDED. WILL CONTINUE TO MONITOR PATIENT.
[2020-04-01 20:00] VITALS: BP_SYST 98
[2020-04-01] MEDS: MELATONIN 3 MG TABLET PO SCH (21:00)
[2020-04-01] MEDS: FENOFIBRATE NANOCRYSTALLIZED 48 MG TABLET (TRICOR) PO SCH (21:00)
[2020-04-01] MEDS: ATORVASTATIN 10 MG TABLET PO SCH (21:00)
--- NOTE | 2020-04-01 21:00 | NUR ---
DR. NORIEGA ROUNDS/ TO CHERRI MALDONADO DR. NORIEGA AT BEDSIDE. MADE AWARE THAT PATIENT HAS POOR APPETITE, BLOOD PRESSURE IS IN THE LOW SIDE. AT THIS TIME. 98/57. MADE AWARE THAT PATIENT HAS LESS URINE OUTPUT,MD VERBALIZED/ORDERED TO DISCONTINUE MALDONADO AT THIS TIME.
--- NOTE | 2020-04-01 21:00 | NUR ---
REFUSED DUE MEDICATION/ QD=804 PATIENT REFUSED DUE MEDICATION EXCEPT PROAMATINE AND HEPARIN. BLOOD SUGAR WAS 159, MD AWARE. PATIENT ABLE TO EAT A SMALL AMOUNT OF JELLO AND NEPRO DRINK. PATIENT DID NOT TALK, BUT ABLE TO FOLLOW ON SIMPLE COMMANDS, PATIENT NOD AND SHAKE HIS HEAD WHEN BEING QUESTION. NO SIGNS OF RESPIRATORY DISTRESS NOTED. BREATHING EVEN AND UNLABORED. REPOSITIONED AT THIS TIME. SAFETY PRECAUTIONS IN PLACE. WILL CONTINUE TO MONITOR PATIENT
[2020-04-01] MEDS: INSULIN REGULAR, HUMAN 100 UNITS/ML, 10 ML VIAL (humuLIN R) SUBCUT PRN (22:41)
--- NOTE | 2020-04-01 23:57 | NUR ---
VITAL SIGNS VITAL SIGNS TAKEN AND WILL BE RECORDED. PATIENT AWAKE, NO SIGNS OF RESPIRATORY DISTRESS AND DISCOMFORT NOTED. ON 2L OF OXYGEN VIA NASAL CANULA, TOLERATING WELL. 02 SATURATION OF 99%. PATIENT WAS OFFERED TO EAT AND DRINK WATER, PATIENT REFUSED. WILL CONTINUE TO ENCOURAGE. BED LOCKED AND IN LOWEST POSITION. REPOSITIONED PATIENT. SAFETY PRECAUTIONS IN PLACE. WILL CONTINUE TO MONITOR PATIENT.
[2020-04-02] VITALS: BP_SYST 112
[2020-04-02] MEDS: LevALBUTEROL HCL 1.25 MG/0.5 ML *CONC.* VIAL.NEB (XOPENEX CONC.) INH SCH ×4 (01:20→20:18)
--- NOTE | 2020-04-02 02:18 | NUR ---
RN ROUNDS PATIENT ASLEEP AT THIS TIME. NO SIGNS OF RESPIRATORY DISTRESS AND DISCOMFORT NOTED. BREATHING EVEN AND UNLABORED. ON 2L OF OXYGEN TOLERATING WELL. SAFETY PRECAUTIONS IN PLACE. WILL CONTINUE TO MONITOR PATIENT.
[2020-04-02] MEDS: SEVELAMER CARBONATE 800 MG TABLET PO SCH ×3 (06:28→17:49)
[2020-04-02] MEDS: INSULIN REGULAR, HUMAN 100 UNITS/ML, 10 ML VIAL (humuLIN R) SUBCUT PRN (06:29)
--- NOTE | 2020-04-02 06:37 | NUR ---
CLOSING NOTE/YE=668 PATIENT REFUSED TO TAKE DUE MEDICATION, PATIENT SHAKING HIS HEAD AND WON'T OPEN HIS EYES AND MOUTH WHEN OFFERED CRUSHED MEDICATION, PATIENT WAS EDUCATED ON PURPOSE AND BENEFITS OF MEDICATION THAT WAS GIVEN, PATIENT UNABLE TO VERBALIZED UNDERSTANDING, PATIENT IS CONFUSED AND STILL REFUSING MEDS. WILL CONTINUE TO ENCOURAGE AND FEED PATIENT. BS [id number]. NO COVERAGE NEEDED AT THIS TIME. PATIENT HAS NO SIGNS OF RESPIRATORY DISTRESS AND NOTED. BREATHING EVEN AND UNLABORED. ON 2L OF OXYGEN VIA NASAL CANULA, TOLERATING WELL. NO SOB NOTED. LEFT UPPER MIDLINE, DRESSING CLEAN AND DRY, PATENCY NOTED. YOLIS CATHETER DRESSING CLEAN AND DRY. BED LOCKED AND IN LOWEST POSITION. BED ALARM ON. ALL NEEDS MET THROUGHOUT THE SHIFT. WILL CONTINUE TO MONITOR PATIENT UNTIL ENDORSE TO ONCOMING SHIFT NURSE FOR CONTINUITY OF CARE.
--- NOTE | 2020-04-02 07:35 | NUR ---
OPENING NOTE Patient resting in the bed. No acute distress. On O2 2L/min via NC. Skin warm and dry to touch. Midline intact to GIOVANNI, no redness, no swelling, patent. Covered with clean and dry transparent dressing. Marco cath intact to right upper chest, covered with clean and dry dressing, no bleeding noted. Safety measure maintained. Call light within reached. Bed locked in low position, side rails up, bed alarm on. On isolation. Will continue to monitor.
[2020-04-02 08:00] VITALS: BP_SYST 103
--- NOTE | 2020-04-02 08:55 | NUR ---
SEEN AND EXAMINED BY RAY ATKINS.
[2020-04-02] MEDS: INSULIN GLARGINE 100 UNITS/ML 10 ML VIAL SQ SCH (09:00)
[2020-04-02] MEDS: LACTOBACILLUS RHAMNOSUS GG 1 CAP CAPSULE PO SCH (09:49)
[2020-04-02] MEDS: NEPHROVITE, (FOLIC ACID/VITAMIN B COMP W-C 1 TAB) PO SCH (09:49)
[2020-04-02] MEDS: MEGESTROL ACETATE 400 MG/10 ML UDC PO SCH (09:49)
[2020-04-02] MEDS: MIDODRINE HCL 5 MG TABLET (PROAMATINE) PO SCH ×3 (09:49→21:44)
[2020-04-02] MEDS: DOCUSATE SODIUM 100 MG CAPSULE PO SCH ×2 (09:49→21:00)
[2020-04-02] MEDS: HEPARIN SODIUM,PORCINE 5,000 UNITS/ML VIAL SUBCUT SCH ×2 (09:50→21:47)
[2020-04-02] MEDS: BALSAM PERU/CASTOR OIL 60 GM OINT...G. TP SCH (09:51)
--- NOTE | 2020-04-02 10:00 | NUR ---
TURNED AND REPOSITIONED Patient resting in the bed. No acute distress. Continue on O2 2L/min via NC. Am PO med given, tolerated well. HJ=[id number] refused Latus insulin, risk and benefit explained. Turned and repositioned. Safety measure maintained. Call light within reached. Bed locked in low position, padded side rails up, bed alarm on. Isolation maintained. Continue to monitor.
[2020-04-02 10:01] VITALS: BP_SYST 112
[2020-04-02] MEDS: cefTRIAXone 1 GM IVPB PREMIX 50 ML IV SCH (10:57)
--- NOTE | 2020-04-02 11:34 | NUR ---
ZJ=049 No insulin needed per sliding scale. Patient resting in the bed. No acute distress. Continue on O2 2L/min via NC. Isolation maintained. Safety measure maintained. Call light within reached. Bed locked in low position, padded side rails up, bed alarm on. Continue to monitor.
[2020-04-02 12:00] VITALS: BP_SYST 98
[2020-04-02] MEDS: AZITHROMYCIN 500 MG in NS 250 ML IV SCH (13:25)
--- NOTE | 2020-04-02 14:05 | NUR ---
HEMODIALYSIS STARTED Patient resting in the bed. No acute distress. Continue on O2 2L/min via NC. Hemodialysis started, dialysis nurse stay with patient. Isolation maintained. Safety measure maintained. Call light within reached. Continue to monitor.
[2020-04-02 14:24] LABS: BASOPHILS # (AUTO) 0.1 K/uL (0.0-0.2); BASOPHILS % (AUTO) 0.6 % (0.0-2.0); EOSINOPHILS % (AUTO) 0.5 % (0.0-4.0); HEMOGLOBIN 10.1 g/dL (14.0-18.0); LYMPHOCYTES # (AUTO) 0.4 K/uL (1.0-5.5); LYMPHOCYTES % (AUTO) 4.9 % (20.5-51.5); MEAN CORPUSCULAR HEMOGLOBIN 32 pg (27-31); MEAN CORPUSCULAR HGB CONC 32 % (32-36); MEAN CORPUSCULAR VOLUME 101 fL (79.0-98.0); MONOCYTES # (AUTO) 0.3 K/uL (0.0-1.0); MONOCYTES % (AUTO) 3.3 % (1.7-9.3); NEUTROPHILS # (AUTO) 7.3 K/uL (1.8-7.7); NEUTROPHILS % (AUTO) 90.7 % (40.0-70.0); PLATELET COUNT (AUTO) 109 K/uL (130-430); RED BLOOD CELL COUNT(AUTO) 3.19 MIL/uL (4.2-6.2); RED CELL DISTRIBUTION WIDTH 19.7 % (9.0-15.0)
[2020-04-02 14:42] LABS: ANION GAP 6 (5-15); CALCIUM 7.8 mg/dL (8.4-11.0); CHLORIDE 104 mmol/L (98-107); CREATININE 3.96 mg/dL (0.55-1.30); GLUCOSE 202 mg/dL (70-99); POTASSIUM 3.7 mmol/L (3.5-5.1); SODIUM SERUM 140 mmol/L (136-145); UREA NITROGEN, BLOOD 26 mg/dL (8-21)
--- NOTE | 2020-04-02 15:43 | NUR ---
HIGH ALERT NOTE: Called Hubert Pang back at [phone] identified within the medical roster to verify physician authenticity.
[2020-04-02] MEDS ORDERED: HEPARIN SODIUM,PORCINE 5,000 UNITS/ML VIAL MC ONE (15:45)
[2020-04-02 16:00] VITALS: BP_SYST 97
--- NOTE | 2020-04-02 16:55 | NUR ---
HEMODIALYSIS COMPLETED Patient resting in the bed. No acute distress. Continue on O2 2L/min via NC. Hemodialysis completed with 1.4L out. BP stable. Safety measure maintained. Call light within reached. Continue to monitor.
--- NOTE | 2020-04-02 18:57 | NUR ---
CLOSING NOTE Patient resting in the bed. No acute distress. On O2 2L/min via NC. Skin warm and dry to touch. Midline intact to JEAN PIERRE, no redness, no swelling, patent. Covered with clean and dry transparent dressing. Marco cath intact to right chest, covered with clean and dry dressing, no bleeding noted. All needs met. No seizure activity noted during shift. Safety measure maintained. Call light within reached. Bed locked in low position, side rails up, bed alarm on. Isolation maintained. Will endorse to night nurse.
--- NOTE | 2020-04-02 19:15 | NUR ---
OPENING NOTE Patient is resting in the bed, no acute distress, 2L NC. Midline intact to GIOVANNI, no redness, no swelling, patent. Covered with clean and dry transparent dressing. Marco cath intact to right upper chest, covered with clean and dry dressing, no bleeding noted. Safety and isolation measure to be maintained. Call light within reach, bed alarm on, bed at lowest position. Dressings intact, no drainage noted, wound care provided by morning nurse. Will continue to monitor.
[2020-04-02 20:00] VITALS: BP_SYST 113
[2020-04-02] MEDS: MELATONIN 3 MG TABLET PO SCH (21:00)
[2020-04-02] MEDS: FENOFIBRATE NANOCRYSTALLIZED 48 MG TABLET (TRICOR) PO SCH (21:00)
[2020-04-02] MEDS: ATORVASTATIN 10 MG TABLET PO SCH (21:00)
--- NOTE | 2020-04-02 22:20 | NUR ---
Turning provided, patient tolerated well. Television turned on by request. Bed alarm on, call light within reach, will continue to monitor.
[2020-04-03] VITALS (7 sets, daily range): BP systolic 85–105
[2020-04-03] MEDS ORDERED: NS 500 ML IV ONE (00:30)
--- NOTE | 2020-04-03 00:45 | NUR ---
SPOKE TO DR. NUÑEZ, RECEIVED NEW ORDERS OF BOLUS 500 CC AND IVF AT 50CC AFTERWARDS FOR LOW BLOOD PRESSURE THAT WAS AT FIRST 74/52, AFTER REPOSITIONING, PATIENT'S SBP AT 85/61.
[2020-04-03] MEDS: LevALBUTEROL HCL 1.25 MG/0.5 ML *CONC.* VIAL.NEB (XOPENEX CONC.) INH SCH ×3 (01:00→13:58)
--- NOTE | 2020-04-03 01:06 | NUR ---
BP OF 92/72, PULSE 76 WITH PATIENT [place]. O2 AT 100%. PATIENT ABLE TO RESPOND AND HELP TURN.
[2020-04-03] MEDS ORDERED: NACL 0.9% 1,000 ML IV SCH (01:30)
--- NOTE | 2020-04-03 01:39 | NUR ---
PATIENT WAS YELLING FOR ASSISTANCE, PATIENT VERBALIZED THAT HE WANTED TO EAT. PROVIDED ENSURE NEPRO, AND PATIENT TOOK 3 SIPS. PATIENT STATES HE DOES NOT HAVE ANY NEEDS AT THIS TIME. WILL CONTINUE TO MONITOR.
--- NOTE | 2020-04-03 02:50 | NUR ---
Patient watching television, no signs of distress noted. Will continue to monitor.
[2020-04-03] MEDS: SEVELAMER CARBONATE 800 MG TABLET PO SCH ×3 (06:51→16:50)
--- NOTE | 2020-04-03 07:20 | NUR ---
CLOSING NOTE Patient is resting in the bed, no acute distress, 2L NC, watching television. Midline intact to GIOVANNI, no redness, no swelling, patent, IVF running. Covered with clean and dry transparent dressing. Marco cath intact to right upper chest, covered with clean and dry dressing, no bleeding noted. Safety and isolation measure maintained. Call light within reach, bed alarm on, bed at lowest position. Dressings intact, no drainage noted. Patient refused 0700 medications and blood pressure was monitored throughout shift. Will endorse care to oncoming shift.
--- NOTE | 2020-04-03 08:36 | NUR ---
INITIAL ROUNDS Received pt AAO x 1, no s/s resp distress, no c/o pain or discomfort. Pt on Airborne and droplet precautions for R/O Covid-19. IVF infusing well to JEAN PIERRE midline at ordered rate with no s/s infiltration to site. Pt refused to be repositioned, pt educated on purpose of repositioning for skin care-pt still refused. Side rails up x3, bed alarm on, room across from nursing station for safety. Call light within reach.
[2020-04-03] MEDS: INSULIN GLARGINE 100 UNITS/ML 10 ML VIAL SQ SCH (09:00)
[2020-04-03 09:12] LABS: BASOPHILS # (AUTO) 0.1 K/uL (0.0-0.2); BASOPHILS % (AUTO) 0.5 % (0.0-2.0); EOSINOPHILS % (AUTO) 0.2 % (0.0-4.0); HEMATOCRIT 35.3 % (36-54); HEMOGLOBIN 11.2 g/dL (14.0-18.0); LYMPHOCYTES # (AUTO) 0.5 K/uL (1.0-5.5); LYMPHOCYTES % (AUTO) 5.5 % (20.5-51.5); MEAN CORPUSCULAR HEMOGLOBIN 32 pg (27-31); MEAN CORPUSCULAR HGB CONC 32 % (32-36); MEAN CORPUSCULAR VOLUME 100 fL (79.0-98.0); MONOCYTES # (AUTO) 0.3 K/uL (0.0-1.0); MONOCYTES % (AUTO) 2.9 % (1.7-9.3); NEUTROPHILS # (AUTO) 8.6 K/uL (1.8-7.7); NEUTROPHILS % (AUTO) 90.9 % (40.0-70.0); PLATELET COUNT (AUTO) 112 K/uL (130-430); RED BLOOD CELL COUNT(AUTO) 3.52 MIL/uL (4.2-6.2); RED CELL DISTRIBUTION WIDTH 19.6 % (9.0-15.0); WHITE BLOOD COUNT (AUTO) 9.5 K/uL (4.8-10.8)
[2020-04-03 09:30] LABS: ALANINE AMINOTRANSFERASE 49 U/L (12-78); ALBUMIN 2.2 g/dL (3.4-4.8); ANION GAP 6 (5-15); ASPARTATE AMINOTRANSFERASE 63 U/L (10-37); CALCIUM 7.8 mg/dL (8.4-11.0); CHLORIDE 102 mmol/L (98-107); CREATININE 2.98 mg/dL (0.55-1.30); GLUCOSE 156 mg/dL (70-99); POTASSIUM 3.6 mmol/L (3.5-5.1); SODIUM SERUM 138 mmol/L (136-145); TOTAL BILIRUBIN 0.8 mg/dL (0.0-1.0); UREA NITROGEN, BLOOD 17 mg/dL (8-21)
[2020-04-03] MEDS: DOCUSATE SODIUM 100 MG CAPSULE PO SCH (10:37)
[2020-04-03] MEDS: LACTOBACILLUS RHAMNOSUS GG 1 CAP CAPSULE PO SCH (10:37)
[2020-04-03] MEDS: NEPHROVITE, (FOLIC ACID/VITAMIN B COMP W-C 1 TAB) PO SCH (10:38)
[2020-04-03] MEDS: MIDODRINE HCL 5 MG TABLET (PROAMATINE) PO SCH ×2 (10:38→16:00)
[2020-04-03] MEDS: MEGESTROL ACETATE 400 MG/10 ML UDC PO SCH (10:38)
[2020-04-03] MEDS: HEPARIN SODIUM,PORCINE 5,000 UNITS/ML VIAL SUBCUT SCH (10:41)
[2020-04-03] MEDS: cefTRIAXone 1 GM IVPB PREMIX 50 ML IV SCH (10:47)
[2020-04-03] MEDS: AZITHROMYCIN 500 MG in NS 250 ML IV SCH (12:42)
--- NOTE | 2020-04-03 12:55 | NUR ---
ROUNDS/POOR APPETITE Pt resting quietly in bed with no s/s resp distress,no c/o pain or discomfort. Pt fed lunch with aspiration precautions in place. -pt ate 1 spoonful of Jell-o, refused anymore. Pt drank very small amount of Nepro. Pt encouraged to drink more and refused-told me "no more". Pt repositioned with pillow support and heels off-loaded for skin care. All precautions remain in place.
--- NOTE | 2020-04-03 13:50 | NUR ---
Discharge Planning: DCP faxed pt referral to [facility] (f [phone] p [phone]) DCP to follow up Addendum: 04/03/20 at 1428 by Guerda Clement DP DCP followed up on pt referral to [facility] (f [phone] p [phone]) per Richard pt will go to [facility] Addendum: 04/03/20 at 1535 by Guerda Clement DP DCP arranged transportation with [facility] ([phone]) Will Call BLS to [facility] (f [phone] p [phone]) per Richard pt will go to [facility] 11
--- NOTE | 2020-04-03 17:06 | NUR ---
Nutrition F/U RD reviewed pt's current EMR record including diet Hx, physician notes, nursing notes, pertinent labs/meds/procedures, care trends, and care activity. Admission Dx: Acute CHF Exacerbation PMH: HTN, DM, ESRD on HD, CHF, s/p pacemaker placement, advanced dementia Pt also w/ sacrum/buttock wounds per consult note. Current Diet Order/Nutrition Support: CCHO x3 days Subjective Info: RD bedside visit deferred d/t isolation precautions and PPE conservation efforts. Per nursing notes, pt has a very poor appetite -- only ate a spoonful of gelatin and small amount of Nepro this afternoon. Possible D/C planning to subacute per case management notes. Pt requires encouragement at meal times. New wt noted: 130#/59 kg (04/03) -- up5# possibly r/t fluid shifts a/w Hx of CHF/ESRD. Pt is not meeting nutritional needs. Pertinent Medications: megace, culturelle, lantus, nephrovite, colace, renvela Pertinent Labs: BUN 17 WNL, CRE 2.98 H, BG 156 H, POC BG 144 H Skin Integrity Comment: Caleb Scale 11. Per Dental Hygiene Instructor note 04/01: 1. Sacral area: Pressure ulcer, present on admission. 2. Buttock/Perianal area: Unstageable pressure ulcer, present on admission. 3. Left lower extremity: Multiple scabs and hemosiderin staining, present on admission. No odor, no drainage. Dry, stable. 4. Right lower extremity: Multiple scabs and hemosiderin staining, present on admission. 5. Left heel: Blanchable red erythema, present on admission. 6. Right heel: Blanchable bright red erythema, present on admission. 7. Left lateral forearm: Scab, present on admission. 8. Right upper extremity: Extremity has multiple areas of ecchymosis, present on admission. Current % PO Negligible since admission Estimated Energy Expenditure (kcals/day) 8788-0743 kcal/day (25-30 kcal/kg IBW for maintenance w/ CHF) NEW Estimated Protein Required (g/day) 78-98 gm pro/day (1.2-1.5 gm pro/kg IBW for wound healing, HD needs) Estimated Fluid Required (l/day) per MD d/t renal dz and CHF Problem/Etiology/Signs/Symptoms Increased protein needs r/t increased nutritional demands for healing AEB ESRD on HD and pt w/ sacral/buttock wounds per personal clothing laundry aide. Altered nutrition-related lab values r/t endocrine and renal dysfunction AEB elevated BG, POC BG, BUN, and Cr lab values. Expected Outcomes/Goals -Will monitor diet tolerance and PO intake w/ goal of pt meeting at least 75% of estimated nutritional needs, labs trending WNL, normal GI function, skin integrity, and weight maintenance. Dietitian Recommendations * Recommend CCHO, finely chopped diet (moist foods preferred), Nepro BID (ONS provides an additional 850 kcal/day, 38 gm protein/day) Follow Up High Risk: F/U in 2-3 days
--- NOTE | 2020-04-03 17:12 | NUR ---
Dietitian Recommendations * Recommend CCHO, finely chopped diet (moist foods preferred), Nepro BID (ONS provides an additional 850 kcal/day, 38 gm protein/day) LP, RD Please refer to Nutrition F/U for details.
[2020-04-03] MEDS: BALSAM PERU/CASTOR OIL 60 GM OINT...G. TP SCH (17:15)
--- NOTE | 2020-04-03 17:15 | NUR ---
WOUND CARE *Sacral wound dressing removed, area cleansed with normal saline, Venelex applied to wound bed, moisture barrier applied to periwound, covered with a foam dressing. Wound measures 2.0 cm x 1.5 cm, wound bed is 100% pink tissue, no odor, no drainage, periwound intact. Buttock wound cleansed with normal saline, Venelex applied to wound bed, moisture barrier cream applied to periwound, covered with foam dressing. Wound measures 1.0 cm x 0.2 cm, wound bed is 100% yellow tissue, no odor, no drainage, periwound intact. Pt repositioned with pillow support and heals off-loaded for skin care and comfort. Pt tolerated well.
--- NOTE | 2020-04-03 18:26 | NUR ---
REPORT CALLED Report called to Maria Dolores RICKS at [facility].
[2020-04-03 19:06] LABS: LEGIONELLA PNEUMOPHILIA AB <0.91 OD ratio (0.00-0.90)
--- NOTE | 2020-04-03 19:32 | NUR ---
CLOSING NOTE/REPORT GIVEN TO EMT [facility] here to transfer pt back to [facility], report given to EMT. EMT informed to take pt's hearing aid and black case for hearing aid. Pt resting quietly with no s/s resp distress, no c/o pain or discomfort. [employer] nurse assisting ENT with discharge.
--- NOTE | 2020-04-03 19:45 | NUR ---
pt.transferred return;[facility]ar driver.[facility] day-shift present provided the ambulance staff w/ pt's report/data.i have attended to the v/s w/in normal.limits:note b/p status.family apprised of the pt's return transfer to the facility césar driver.pt.presents dentures/hearing aid x1;rt.ear;w storage box;black.i have prepared the pt's pertenences.pt.prepared for transfer:presents transfer gown.id-band;white.transfer id band. pt.presents díaz cath to remain intact.mid line;location;lt.bicept to remain intact.pt.per flacc pain mgx pt.absent facial grimaces/body posturing.pt.transferred in stable status.jaison day-shift telephoned the facility:césar driver and provided the pt's report/data w/in the day shift.
[2020-04-03 22:07] LABS: MYCOPLASMA PNEUMONIAE IgM <770 U/mL (0-769)
== END 2020-04-03 19:50 | DRG 291 ==
LOC: SED 18:50 → STU 21:18
PROVIDERS: ADMIT Family Medicine; ATTEND Family Medicine
PROC: 02H633Z Insertion of Infusion Device into Right Atrium, Percutaneous Approach (ICD-10-PCS; 2020-03-30)
PROC: B548ZZA Ultrasonography of Superior Vena Cava, Guidance (ICD-10-PCS; 2020-03-30)
PROC: 5A1D70Z Performance of Urinary Filtration, Intermittent, Less than 6 Hours Per Day (ICD-10-PCS; principal; 2020-03-31)
PROC: 5A1D70Z Performance of Urinary Filtration, Intermittent, Less than 6 Hours Per Day (ICD-10-PCS; 2020-04-02)
DX: I13.2 Hypertensive heart and chronic kidney disease with heart failure and with stage 5 chronic kidney disease, or end stage renal disease (principal); J15.9 Unspecified bacterial pneumonia; N18.6 End stage renal disease; I50.43 Acute on chronic combined systolic (congestive) and diastolic (congestive) heart failure; J44.0 Chronic obstructive pulmonary disease with (acute) lower respiratory infection; I24.8 Other forms of acute ischemic heart disease; N39.0 Urinary tract infection, site not specified; D64.9 Anemia, unspecified; D72.810 Lymphocytopenia; E11.22 Type 2 diabetes mellitus with diabetic chronic kidney disease; E11.51 Type 2 diabetes mellitus with diabetic peripheral angiopathy without gangrene; F03.90 Unspecified dementia, unspecified severity, without behavioral disturbance, psychotic disturbance, mood disturbance, and anxiety; I25.5 Ischemic cardiomyopathy; I35.0 Nonrheumatic aortic (valve) stenosis; R62.7 Adult failure to thrive; I44.7 Left bundle-branch block, unspecified; Y95 Nosocomial condition; Z20.828 Contact with and (suspected) exposure to other viral communicable diseases; I25.2 Old myocardial infarction; Z79.4 Long term (current) use of insulin; Z74.01 Bed confinement status; Z87.891 Personal history of nicotine dependence; Z89.429 Acquired absence of other toe(s), unspecified side; Z95.0 Presence of cardiac pacemaker; Z68.21 Body mass index [BMI] 21.0-21.9, adult
CPT/HCPCS: 36415; 70450-TC; 71045; 80048; 80053; 80061; 81000-TC; 82550-TC; 82962; 83605; 83880; 84443-TC; 84484; 85025; 85379; 86140; 86710; 86713; 86738; 87040-TC; 87081; 87086; 87186-TC; 90935; 90937; 93005; 93306; 94640; 94760; 96365; 99285; C1751; C1769; G0378; J0456; J0696; J1644; J1815; J7030; J7040; J7050; J7612; U0003